=== PATIENT | male | born 1955 | race Caucasian/White ===

== ENCOUNTER 2017-08-12 11:05 | Inpatient (IN) | payer OTHER ==
[2017-08-12 11:26] VITALS: BMI 18.9
[2017-08-12] MEDS ORDERED: MAGNESIUM CITRATE 300 ML BOTTLE PO PRN (12:52)
[2017-08-12] MEDS ORDERED: MENTHOL/PHENOL 1 EACH UD MM PRN (12:52)
[2017-08-12] MEDS ORDERED: MAG HYDROX/AL HYDROX/SIMETH 30 ML UNIT-DOSE CUP PO PRN (12:52)
[2017-08-12] MEDS ORDERED: MAGNESIUM HYDROX 2400MG/30ML ORAL SUSPENSION 30 ML CUP PO PRN (12:52)
[2017-08-12] MEDS ORDERED: chlordiazePOXIDE HCL 25 MG CAPSULE PO PRN (12:52)
[2017-08-12] MEDS ORDERED: P-EPHED 60MG/TRIPROLIDI 2.5MG TABLET PO PRN (12:52)
[2017-08-12] MEDS ORDERED: guaiFENesin/D-METHORPHAN HB 10 ML UNIT-DOSE CUPS PO PRN (12:52)
[2017-08-12] MEDS ORDERED: LOPERAMIDE HCL 2 MG CAPSULE PO PRN (12:52)
[2017-08-12] MEDS ORDERED: IBUPROFEN 400 MG TABLET (FP) PO PRN (12:52)
[2017-08-12] MEDS ORDERED: NICOTINE POLACRILEX 4 MG GUM BUC PRN (12:52)
[2017-08-12] MEDS ORDERED: ACETAMINOPHEN 325 MG TABLET (FP) PO PRN (12:52)
[2017-08-12] MEDS ORDERED: hydrOXYzine PAMOATE 50 MG CAPSULE (FP) PO PRN (12:52)
--- NOTE | 2017-08-12 12:57 | HP ---
CIWA Score - CIWA Score Nausea/Vomitin Muscle Tremors: 4-Moderate,w/Arms Extend Anxiety: 4-Mod. Anxious/Guarded Agitation: 4-Moderately Restless Paroxysmal Sweats: 3 Orientation: 0-Oriented Tacttile Disturbances: 1-Very Mild Itch/Numbness Auditory Disturbances: 0-None Visual Disturbances: 0-None Headache: 1-Very Mild CIWA-Ar Total Score: 20 Admission ROS BHS - HPI Chief Complaint: alcohol withdrawal sx Allergies/Adverse Reactions: Allergies Allergy/AdvReac Type Severity Reaction Status Date / Time No Known Allergies Allergy Verified 12/21/16 11:50 History of Present Illness: 61 yo m w h/o chronic alcoholism, multiple admissions to [facility] for inpatient detox, no h/o seizures or DTs, last drink this AM, uses cannabis regularly, smokes 1PPD PMHx bph on flomax which he took today, depression,a nxiety and insomnia. no h/o suicidal ideation, no suicide attempts in past. Was receiving librium from PCP for withdrawal sx. - Ebola screening Have you had contact with anyone from an Ebola affected area: No Have you been sick,other than usual withdrawal symptoms: No Do you have a fever: No - Review of Systems Constitutional: Chills, Diaphoresis, Night Sweats, Weakness, Unintentional Wgt. Loss EENT: reports: No Symptoms Reported Respiratory: reports: No Symptoms reported Cardiac: reports: No Symptoms Reported GI: reports: Diarrhea, Nausea, Poor Appetite, Poor Fluid Intake, Abdominal cramping : reports: No Symptoms Reported Musculoskeletal: reports: Joint Pain (shoulder pains arthritis), Muscle Pain, Muscle Weakness Integumentary: reports: Flushing, Sweating Neuro: reports: Headache, Numbness, Paresthesia, Tingling, Tremors, Weakness Endocrine: reports: No Symptoms Reported Hematology: reports: No Symptoms Reported Psychiatric: reports: Judgement Intact, Mood/Affect Appropiate, Orientated x3, Anxious, Depressed Other Systems: Reviewed and Negative Patient History - Patient Medical History Hx Anemia: No Hx Asthma: No Hx Chronic Obstructive Pulmonary Disease (COPD): No Hx Cancer: No Hx Cardiac Disorders: No Hx Congestive Heart Failure: No Hx Hypertension: No Hx Hypercholesterolemia: Yes (zocor 40mg recently d/c by PCP) Hx Pacemaker: No HX Cerebrovascular Accident: No Hx Seizures: No Hx Dementia: No Hx Diabetes: No Hx Gastrointestinal Disorders: No Hx Liver Disease: No Hx Genitourinary Disorders: No Hx Sexually Transmitted Disorders: No Hx Renal Disease (ESRD): No Hx Thyroid Disease: No Hx Human Immunodeficiency Virus (HIV): No Hx Hepatitis C: No Hx Depression: Yes (no treatment) Hx Suicide Attempt: No Hx Bipolar Disorder: No Hx Schizophrenia: No - Patient Surgical History Past Surgical History: No Hx Neurologic Surgery: No Hx Cataract Extraction: No Hx Cardiac Surgery: No Hx Lung Surgery: No Hx Breast Surgery: No Hx Breast Biopsy: No Hx Abdominal Surgery: No Hx Appendectomy: No Hx Cholecystectomy: No Hx Genitourinary Surgery: No Hx Section: No Hx Orthopedic Surgery: No Hx Hysterectomy: No Anesthesia Reaction: No - PPD History Previous Implant?: Yes Documented Results: Positive w/proof Implanted On Prior R Admission?: Yes Date: 10/06/12 Results: 15 mm PPD to be Administered?: No - Reproductive History Patient is a Female of Child Bearing Age (11 -55 yrs old): No Patient : No - Smoking Cessation Smoking history: Current every day smoker Have you smoked in the past 12 months: Yes Aproximately how many cigarettes per day: 20 Cigars Per Day: 0 Hx Chewing Tobacco Use: No Initiated information on smoking cessation: Yes 'Breaking Loose' booklet given: 08/12/17 - Substance & Tx. History Hx Alcohol Use: Yes Hx Substance Use: Yes Substance Use Type: Alcohol, Marijuana Hx Substance Use Treatment: Yes (multiple admsisions to [facility];) - Substances Abused Alcohol Route: Oral Frequency: Daily Amount used: vodka(1 pint)/[id number] 6 OZ CANS) Age of first use: 21 Date of Last Use: 08/12/17 Marijuana/Hashish Route: Inhalation Frequency: Daily Amount used: $14 Age of first use: 18 Date of Last Use: 08/12/17 Family Disease History - Family Disease History Family Disease History: Other: Father (alcoholism), Mother (alcoholism), Brother (addiction, alcoholism) Admission Physical Exam BHS - Vital Signs Vital Signs: Vital Signs - 24 hr 08/12/17 11:23 Temperature 98.4 F Pulse Rate 95 H Respiratory 18 Rate Blood Pressure 132/72 - Physical General Appearance: Yes: Nourished, Appropriately Dressed, Disheveled, Mild Distress, Alcohol on Breath, Thin, Tremorous, Irritable, Sweating, Anxious HEENTM: Yes: Within Normal Limits, EOMI, Hearing grossly Normal, Normal ENT Inspection, Normocephalic, Normal Voice, DADA Respiratory: Yes: Within Normal Limits, Chest Non-Tender, Lungs Clear, Normal Breath Sounds, No Respiratory Distress, No Accessory Muscle Use Neck: Yes: Within Normal Limits, No masses,lesions,Nodules, Supple, Trachea in good position Breast: Yes: Breast Exam Deferred Cardiology: Yes: Within Normal Limits, Regular Rhythm, Regular Rate, S1, S2 Abdominal: Yes: Normal Bowel Sounds, Non Tender, Flat, Soft Genitourinary: Yes: Within Normal Limits Back: Yes: Within Normal Limits, Normal Inspection Musculoskeletal: Yes: Within Normal Limits, full range of Motion, Joint Stiffness (right shoulder arthritis), Muscle Pain Extremities: Yes: Normal Capillary Refill, Normal Range of Motion, Non-Tender, Tremors Neurological: Yes: floor representative II-XII NML intact, Fully Oriented, Alert, Motor Strength 5/5, Normal Response, Depressed Affect Integumentary: Yes: Normal Color, Warm, Diaphoresis, Moist Lymphatic: Yes: Within Normal Limits - Addiitonal Findings: withdrawal sx - Diagnostic (1) Alcohol dependence with uncomplicated withdrawal Current Visit: No Status: Chronic (2) Anxiety Current Visit: Yes Status: Acute (3) Cannabis abuse Current Visit: Yes Status: Acute (4) Drug-induced mood disorder Current Visit: Yes Status: Acute (5) Nicotine dependence Current Visit: Yes Status: Acute Qualifiers: Nicotine product type: cigarettes Substance use status: uncomplicated Qualified Code(s): F17.210 - Nicotine dependence, cigarettes, uncomplicated ; F17.210 - Nicotine dependence, cigarettes, uncomplicated (6) Insomnia Current Visit: Yes Status: Acute Cleared for Admission [facility] - Detox or Rehab [facility] Level of Care: Medically Managed Detox Regimen/Protocol: Librium [facility] Breath Alcohol Content Breath Alcohol Content: 0.244 Urine Drug Screen - Results Drug Screen Negative: No Urine Drug Screen Results: THC-Marijuana, BZO-Benzodiazepines
[2017-08-12] MEDS: chlordiazePOXIDE HCL 25 MG CAPSULE PO SCH ×2 (17:26→22:33)
[2017-08-12 18:39] LABS: URINE APPEARANCE CLEAR; URINE BILIRUBIN NEGATIVE (NEGATIVE); URINE BLOOD 1+ (NEGATIVE); URINE COLOR LTYELLOW; URINE GLUCOSE (UA) NEGATIVE (NEGATIVE); URINE KETONE NEGATIVE (NEGATIVE); URINE NITRITE NEGATIVE (NEGATIVE); URINE PROTEIN NEGATIVE (NEGATIVE); URINE UROBILINOGEN NEGATIVE mg/dL (0.2-1.0)
[2017-08-12 18:59] LABS: URINE MUCUS RARE; URINE RBC <1 /hpf (0-3); URINE WBC <1 /hpf (3-5)
[2017-08-12 21:07] LABS: URINE LEUK ESTERASE Negative (NEGATIVE)
[2017-08-12] MEDS: THIAMINE HCL 100 MG TABLET (FP) PO SCH (22:33)
[2017-08-12] MEDS: ZOLPIDEM TARTRATE 5 MG TABLET PO PRN (22:34)
[2017-08-13] MEDS: chlordiazePOXIDE HCL 25 MG CAPSULE PO SCH ×4 (05:48→22:21)
[2017-08-13] MEDS: TAMSULOSIN HCL 0.4 MG CAP.ER.24H (FP) PO SCH (10:16)
[2017-08-13] MEDS: PRENATAL VITAMINS W/ FOLIC ACID TABLET (FP) PO SCH (10:16)
[2017-08-13] MEDS: NICOTINE 21 MG/24 HOURS TOPICAL PATCH TD SCH (10:17)
[2017-08-13 11:36] LABS: MCH 32.4 pg (25.7-33.7); MCHC 32.8 g/dl (32.0-35.9); MEAN CELL VOLUME 98.9 fl (80-96); MEAN PLT VOLUME 9.4 fl (7.5-11.1); PLATELET COUNT 297 K/MM3 (134-434); RDW 14.7 % (11.9-15.9); WHITE BLOOD COUNT 7.8 K/mm3 (4.0-10.0)
--- NOTE | 2017-08-13 11:40 | EKG ---
Test Reason : Blood Pressure : / mmHG Vent. Rate : 095 BPM Atrial Rate : 095 BPM P-R Int : 136 ms QRS Dur : 102 ms QT Int : 348 ms P-R-T Axes : 079 076 074 degrees QTc Int : 437 ms NORMAL SINUS RHYTHM POSSIBLE LEFT ATRIAL ENLARGEMENT NO PREVIOUS ECGS AVAILABLE Confirmed by TAWANNA FRANKLIN MD ([id number]) on 08/13/2017 11:40:07 AM Referred By: Confirmed By:TAWANNA FRANKLIN MD
[2017-08-13 11:53] LABS: ALBUMIN 3.2 g/dl (3.4-5.0); ANION GAP 9 (8-16); CALCIUM 8.3 mg/dL (8.5-10.1); CO2 30 mmol/L (21-32); GLUCOSE,RANDOM 72 mg/dL (74-106)
[2017-08-13 11:58] LABS: ALK PHOS 77 U/L (45-117); BILIRUBIN,TOTAL 0.5 mg/dL (0.2-1.0); CREATININE 0.7 mg/dL (0.7-1.3); SGOT/AST 24 U/L (15-37); SGPT/ALT 25 U/L (12-78); TOT PROT 6.2 g/dl (6.4-8.2)
[2017-08-13] MEDS ORDERED: FLU VACCINE QUAD 60 MCG/0.5 ML (MDV 17-18) IM ONE (12:00)
--- NOTE | 2017-08-13 13:50 | PN ---
[facility] CIWA - CIWA Score Nausea/Vomitin-No Nausea/No Vomiting Muscle Tremors: 4-Moderate,w/Arms Extend Anxiety: 4-Mod. Anxious/Guarded Agitation: 4-Moderately Restless Paroxysmal Sweats: 1-Minimal Palms Moist Orientation: 0-Oriented Tacttile Disturbances: 3-Moderate Itch/Numb/Burn Auditory Disturbances: 0-None Visual Disturbances: 0-None Headache: 0-None Present CIWA-Ar Total Score: 16 BHS Progress Note (SOAP) Subjective: SLIGHT ANXIETY,SWEATS,TREMORS. Objective: 08/13/17 13:50 Vital Signs Temperature 98.3 F 08/13/17 13:40 Pulse Rate 88 08/13/17 13:40 Respiratory Rate 18 08/13/17 13:40 Blood Pressure 113/73 08/13/17 13:40 O2 Sat by Pulse Oximetry (%) Laboratory Last Values WBC 7.8 K/mm3 (4.0-10.0) 08/13/17 07:45 RBC 4.28 M/mm3 (4.00-5.60) 08/13/17 07:45 Hgb 13.9 GM/dL (11.7-16.9) 08/13/17 07:45 Hct 42.3 % (35.4-49) 08/13/17 07:45 MCV 98.9 fl (80-96) H 08/13/17 07:45 MCH 32.4 pg (25.7-33.7) 08/13/17 07:45 MCHC 32.8 g/dl (32.0-35.9) 08/13/17 07:45 RDW 14.7 % (11.9-15.9) D 08/13/17 07:45 Plt Count 297 K/MM3 (134-434) D 08/13/17 07:45 MPV 9.4 fl (7.5-11.1) 08/13/17 07:45 Sodium 141 mmol/L (136-145) 08/13/17 07:45 Potassium 4.3 mmol/L (3.5-5.1) 08/13/17 07:45 Chloride 102 mmol/L (98-107) 08/13/17 07:45 Carbon Dioxide 30 mmol/L (21-32) 08/13/17 07:45 Anion Gap 9 (8-16) 08/13/17 07:45 BUN 19 mg/dL (7-18) H D 08/13/17 07:45 Creatinine 0.7 mg/dL (0.7-1.3) 08/13/17 07:45 Creat Clearance w eGFR > 60 (>60) 08/13/17 07:45 Random Glucose 72 mg/dL (74-106) L 08/13/17 07:45 Calcium 8.3 mg/dL (8.5-10.1) L 08/13/17 07:45 Total Bilirubin 0.5 mg/dL (0.2-1.0) 08/13/17 07:45 AST 24 U/L (15-37) D 08/13/17 07:45 ALT 25 U/L (12-78) D 08/13/17 07:45 Alkaline Phosphatase 77 U/L (45-117) 08/13/17 07:45 Total Protein 6.2 g/dl (6.4-8.2) L D 08/13/17 07:45 Albumin 3.2 g/dl (3.4-5.0) L D 08/13/17 07:45 Urine Color Ltyellow 08/12/17 09:49 Urine Appearance Clear 08/12/17 09:49 Urine pH 5.0 (5.0-8.0) 08/12/17 09:49 Ur Specific [place] <= 1.005 (1.005-1.025) 08/12/17 09:49 Urine Protein Negative (NEGATIVE) 08/12/17 09:49 Urine Glucose (UA) Negative (NEGATIVE) 08/12/17 09:49 Urine Ketones Negative (NEGATIVE) 08/12/17 09:49 Urine Blood 1+ (NEGATIVE) H 08/12/17 09:49 Urine Nitrite Negative (NEGATIVE) 08/12/17 09:49 Urine Bilirubin Negative (NEGATIVE) 08/12/17 09:49 Urine Urobilinogen Negative mg/dL (0.2-1.0) 08/12/17 09:49 Ur Leukocyte Esterase Negative (NEGATIVE) 08/12/17 09:49 Urine RBC <1 /hpf (0-3) 08/12/17 09:49 Urine WBC <1 /hpf (3-5) 08/12/17 09:49 Urine Mucus Rare 08/12/17 09:49 RPR Titer Nonreactive (NONREACTIVE) 08/13/17 07:45 Assessment: 08/13/17 13:50 WITHDRAWAL SX Plan: CONTINUE DETOX
[2017-08-13] MEDS: ZOLPIDEM TARTRATE 5 MG TABLET PO PRN (22:21)
[2017-08-13] MEDS: THIAMINE HCL 100 MG TABLET (FP) PO SCH (22:21)
[2017-08-14] MEDS: chlordiazePOXIDE HCL 25 MG CAPSULE PO SCH ×2 (05:21→10:29)
[2017-08-14] MEDS: TAMSULOSIN HCL 0.4 MG CAP.ER.24H (FP) PO SCH (10:29)
[2017-08-14] MEDS: NICOTINE 21 MG/24 HOURS TOPICAL PATCH TD SCH (10:29)
[2017-08-14] MEDS: PRENATAL VITAMINS W/ FOLIC ACID TABLET (FP) PO SCH (10:30)
--- NOTE | 2017-08-14 11:24 | PN ---
[facility] CIWA - CIWA Score Nausea/Vomitin-No Nausea/No Vomiting Muscle Tremors: 4-Moderate,w/Arms Extend Anxiety: 4-Mod. Anxious/Guarded Agitation: 4-Moderately Restless Paroxysmal Sweats: 1-Minimal Palms Moist Orientation: 0-Oriented Tacttile Disturbances: 3-Moderate Itch/Numb/Burn Auditory Disturbances: 0-None Visual Disturbances: 0-None Headache: 0-None Present CIWA-Ar Total Score: 16 BHS Progress Note (SOAP) Subjective: SLIGHT ANXIETY,SWEATS. ALERT O X 3. NAD. Objective: 08/14/17 11:24 Vital Signs Temperature 96.2 F L 08/14/17 09:55 Pulse Rate 79 08/14/17 09:55 Respiratory Rate 20 08/14/17 09:55 Blood Pressure 111/78 08/14/17 09:55 O2 Sat by Pulse Oximetry (%) Laboratory Last Values WBC 7.8 K/mm3 (4.0-10.0) 08/13/17 07:45 RBC 4.28 M/mm3 (4.00-5.60) 08/13/17 07:45 Hgb 13.9 GM/dL (11.7-16.9) 08/13/17 07:45 Hct 42.3 % (35.4-49) 08/13/17 07:45 MCV 98.9 fl (80-96) H 08/13/17 07:45 MCH 32.4 pg (25.7-33.7) 08/13/17 07:45 MCHC 32.8 g/dl (32.0-35.9) 08/13/17 07:45 RDW 14.7 % (11.9-15.9) D 08/13/17 07:45 Plt Count 297 K/MM3 (134-434) D 08/13/17 07:45 MPV 9.4 fl (7.5-11.1) 08/13/17 07:45 Sodium 141 mmol/L (136-145) 08/13/17 07:45 Potassium 4.3 mmol/L (3.5-5.1) 08/13/17 07:45 Chloride 102 mmol/L (98-107) 08/13/17 07:45 Carbon Dioxide 30 mmol/L (21-32) 08/13/17 07:45 Anion Gap 9 (8-16) 08/13/17 07:45 BUN 19 mg/dL (7-18) H D 08/13/17 07:45 Creatinine 0.7 mg/dL (0.7-1.3) 08/13/17 07:45 Creat Clearance w eGFR > 60 (>60) 08/13/17 07:45 Random Glucose 72 mg/dL (74-106) L 08/13/17 07:45 Calcium 8.3 mg/dL (8.5-10.1) L 08/13/17 07:45 Total Bilirubin 0.5 mg/dL (0.2-1.0) 08/13/17 07:45 AST 24 U/L (15-37) D 08/13/17 07:45 ALT 25 U/L (12-78) D 08/13/17 07:45 Alkaline Phosphatase 77 U/L (45-117) 08/13/17 07:45 Total Protein 6.2 g/dl (6.4-8.2) L D 08/13/17 07:45 Albumin 3.2 g/dl (3.4-5.0) L D 08/13/17 07:45 Urine Color Ltyellow 08/12/17 09:49 Urine Appearance Clear 08/12/17 09:49 Urine pH 5.0 (5.0-8.0) 08/12/17 09:49 Ur Specific [place] <= 1.005 (1.005-1.025) 08/12/17 09:49 Urine Protein Negative (NEGATIVE) 08/12/17 09:49 Urine Glucose (UA) Negative (NEGATIVE) 08/12/17 09:49 Urine Ketones Negative (NEGATIVE) 08/12/17 09:49 Urine Blood 1+ (NEGATIVE) H 08/12/17 09:49 Urine Nitrite Negative (NEGATIVE) 08/12/17 09:49 Urine Bilirubin Negative (NEGATIVE) 08/12/17 09:49 Urine Urobilinogen Negative mg/dL (0.2-1.0) 08/12/17 09:49 Ur Leukocyte Esterase Negative (NEGATIVE) 08/12/17 09:49 Urine RBC <1 /hpf (0-3) 08/12/17 09:49 Urine WBC <1 /hpf (3-5) 08/12/17 09:49 Urine Mucus Rare 08/12/17 09:49 RPR Titer Nonreactive (NONREACTIVE) 08/13/17 07:45 Assessment: 08/14/17 11:24 WITHDRAWAL SX Plan: CONTINUE DETOX
[2017-08-14] MEDS: chlordiazePOXIDE 5 MG CAPSULE PO SCH ×2 (17:46→22:20)
[2017-08-14] MEDS: THIAMINE HCL 100 MG TABLET (FP) PO SCH (22:20)
[2017-08-14] MEDS: ZOLPIDEM TARTRATE 5 MG TABLET PO PRN (22:21)
[2017-08-15] MEDS: chlordiazePOXIDE 5 MG CAPSULE PO SCH ×2 (05:33→10:42)
[2017-08-15] MEDS: TAMSULOSIN HCL 0.4 MG CAP.ER.24H (FP) PO SCH (10:42)
[2017-08-15] MEDS: PRENATAL VITAMINS W/ FOLIC ACID TABLET (FP) PO SCH (10:42)
[2017-08-15] MEDS: NICOTINE 21 MG/24 HOURS TOPICAL PATCH TD SCH (10:44)
--- NOTE | 2017-08-15 12:48 | PN ---
BHS Progress Note (SOAP) Subjective: Tremors. Objective: PT. A & O X 3, OBSERVED AMBULATING ON UNIT. NO ACUTE DISTRESS. 08/15/17 12:45 Vital Signs Temperature 96.2 F L 08/15/17 09:13 Pulse Rate 76 08/15/17 09:13 Respiratory Rate 18 08/15/17 09:13 Blood Pressure 114/65 08/15/17 09:13 O2 Sat by Pulse Oximetry (%) Laboratory Tests 08/12/17 08/13/17 08/13/17 09:49 07:45 07:45 WBC 7.8 RBC 4.28 Hgb 13.9 Hct 42.3 MCV 98.9 H MCH 32.4 MCHC 32.8 RDW 14.7 D Plt Count 297 D MPV 9.4 Sodium 141 Potassium 4.3 Chloride 102 Carbon Dioxide 30 Anion Gap 9 BUN 19 H D Creatinine 0.7 Creat Clearance w eGFR > 60 Random Glucose 72 L Calcium 8.3 L Total Bilirubin 0.5 AST 24 D ALT 25 D Alkaline Phosphatase 77 Total Protein 6.2 L D Albumin 3.2 L D Urine Color Ltyellow Urine Appearance Clear Urine pH 5.0 Ur Specific [place] <= 1.005 Urine Protein Negative Urine Glucose (UA) Negative Urine Ketones Negative Urine Blood 1+ H Urine Nitrite Negative Urine Bilirubin Negative Urine Urobilinogen Negative Ur Leukocyte Esterase Negative Urine RBC <1 Urine WBC <1 Urine Mucus Rare RPR Titer 08/13/17 07:45 WBC RBC Hgb Hct MCV MCH MCHC RDW Plt Count MPV Sodium Potassium Chloride Carbon Dioxide Anion Gap BUN Creatinine Creat Clearance w eGFR Random Glucose Calcium Total Bilirubin AST ALT Alkaline Phosphatase Total Protein Albumin Urine Color Urine Appearance Urine pH Ur Specific [place] Urine Protein Urine Glucose (UA) Urine Ketones Urine Blood Urine Nitrite Urine Bilirubin Urine Urobilinogen Ur Leukocyte Esterase Urine RBC Urine WBC Urine Mucus RPR Titer Nonreactive LABS NOTED. Assessment: 08/15/17 12:47 WITHDRAWAL SYMPTOMS. Plan: CONTINUE DETOX.
[2017-08-15] MEDS: chlordiazePOXIDE HCL 10 MG CAPSULE PO SCH ×2 (17:31→22:24)
[2017-08-15] MEDS: ZOLPIDEM TARTRATE 5 MG TABLET PO PRN (22:24)
[2017-08-15] MEDS: THIAMINE HCL 100 MG TABLET (FP) PO SCH (22:24)
[2017-08-16] MEDS: chlordiazePOXIDE HCL 10 MG CAPSULE PO SCH (05:17)
[2017-08-16 06:18] VITALS: BP 110/63; PULSE 65; TEMP 97.5
--- NOTE | 2017-08-16 17:00 | DS ---
[facility] Detox Discharge Summary Admission Date: 08/12/17 Discharge Date: 08/16/17 - History Present History: Alcohol Dependence, Cannabis Dependence Additional Comments: PATIENT GOING HOME. PATIENT ADVISED TO CONSIDER LOCAL 12-STEP / AA OUTPATIENT SUPPORT GROUP MEETINGS FOR AFTERCARE. PATIENT WAS DISCHARGED FROM DETOX UNIT IN STABLE MEDICAL CONDITION. Pertinent Past History: Hypercholesterolemia, Nicotine Dependence, Insomnia, Anxiety. - Physical Exam Results Vital Signs: Vital Signs Temperature 97.5 F L 08/16/17 06:18 Pulse Rate 65 08/16/17 06:18 Respiratory Rate 16 08/16/17 06:18 Blood Pressure 110/63 08/16/17 06:18 O2 Sat by Pulse Oximetry (%) Pertinent Admission Physical Exam Findings: WITHDRAWAL SYMPTOMS. Laboratory Tests 08/12/17 08/13/17 08/13/17 09:49 07:45 07:45 WBC 7.8 RBC 4.28 Hgb 13.9 Hct 42.3 MCV 98.9 H MCH 32.4 MCHC 32.8 RDW 14.7 D Plt Count 297 D MPV 9.4 Sodium 141 Potassium 4.3 Chloride 102 Carbon Dioxide 30 Anion Gap 9 BUN 19 H D Creatinine 0.7 Creat Clearance w eGFR > 60 Random Glucose 72 L Calcium 8.3 L Total Bilirubin 0.5 AST 24 D ALT 25 D Alkaline Phosphatase 77 Total Protein 6.2 L D Albumin 3.2 L D Urine Color Ltyellow Urine Appearance Clear Urine pH 5.0 Ur Specific [place] <= 1.005 Urine Protein Negative Urine Glucose (UA) Negative Urine Ketones Negative Urine Blood 1+ H Urine Nitrite Negative Urine Bilirubin Negative Urine Urobilinogen Negative Ur Leukocyte Esterase Negative Urine RBC <1 Urine WBC <1 Urine Mucus Rare RPR Titer 08/13/17 07:45 WBC RBC Hgb Hct MCV MCH MCHC RDW Plt Count MPV Sodium Potassium Chloride Carbon Dioxide Anion Gap BUN Creatinine Creat Clearance w eGFR Random Glucose Calcium Total Bilirubin AST ALT Alkaline Phosphatase Total Protein Albumin Urine Color Urine Appearance Urine pH Ur Specific [place] Urine Protein Urine Glucose (UA) Urine Ketones Urine Blood Urine Nitrite Urine Bilirubin Urine Urobilinogen Ur Leukocyte Esterase Urine RBC Urine WBC Urine Mucus RPR Titer Nonreactive LABS NOTED. - Treatment Hospital Course: Detox Protocol Followed, Detoxed Safely, Responded well, Discharged Condition Good Patient has Accepted a Rehab Referral to: NO. PT. GOING HOME, ADVISED TO CONSIDER LOCAL 12-STEP/AA SUPPORT GROUPS - Medication Discharge Medications: Ambulatory Orders Tamsulosin HCl [Flomax] 0.4 mg PO DAILY 08/12/17 - Diagnosis (1) Alcohol dependence with uncomplicated withdrawal Status: Acute (2) Anxiety Status: Acute (3) Cannabis abuse Status: Acute (4) Drug-induced mood disorder Status: Acute (5) Insomnia Status: Acute Qualifiers: Insomnia type: unspecified Qualified Code(s): G47.00 - Insomnia, unspecified; G47.00 - Insomnia, unspecified (6) Nicotine dependence Status: Acute Qualifiers: Nicotine product type: cigarettes Substance use status: in withdrawal Qualified Code(s): F17.213 - Nicotine dependence, cigarettes, with withdrawal; F17.213 - Nicotine dependence, cigarettes, with withdrawal - AMA Did Patient Leave Against Medical Advice: No
== END 2017-08-16 06:35 | disposition home or self-care (01) | DRG 775 ==
LOC: YASAS 11:05 → Y3N 13:32
PROVIDERS: ADMIT Internal Medicine; ATTEND Internal Medicine
PROC: HZ2ZZZZ Detoxification Services for Substance Abuse Treatment (ICD-10-PCS; principal; 2017-08-12)
DX: F10.230 Alcohol dependence with withdrawal, uncomplicated (principal); F12.10 Cannabis abuse, uncomplicated; F17.213 Nicotine dependence, cigarettes, with withdrawal; F32.9 Major depressive disorder, single episode, unspecified; F10.24 Alcohol dependence with alcohol-induced mood disorder; F41.9 Anxiety disorder, unspecified; G47.00 Insomnia, unspecified
CPT/HCPCS: 36415; 71020-TC; 80053; 81003; 81015; 85027; 86593; 90688; 93005; 93010; G0008

== ENCOUNTER 2017-11-29 13:15 | Inpatient (IN) | payer OTHER ==
[2017-11-29 14:22] VITALS: BMI 18.4
--- NOTE | 2017-11-29 16:57 | HP ---
CIWA Score - CIWA Score Nausea/Vomitin-No Nausea/No Vomiting Muscle Tremors: 4-Moderate,w/Arms Extend Anxiety: 4-Mod. Anxious/Guarded Agitation: 1-Slight > Activity Paroxysmal Sweats: No Perspiration Orientation: 1-Uncertain about Date Tacttile Disturbances: 2-Mild Itch/Numbness/Burn (hands and feet) Auditory Disturbances: 0-None Visual Disturbances: 0-None Headache: 0-None Present CIWA-Ar Total Score: 12 Admission ROS S - HPI Chief Complaint: ETOH withdrawal symptoms Allergies/Adverse Reactions: Allergies Allergy/AdvReac Type Severity Reaction Status Date / Time No Known Allergies Allergy Verified 12/21/16 11:50 History of Present Illness: 61 yo male with hx of alcohol dependence, has multiple admissions to [facility] for inpatient detox, last detox 2016. Reports 40+ year cigaret smoking, with currently smokes 1/2 pack per day. Report recent of his mother this . Denies any history of seizure. Last drink was this AM. Longest period of sobriety 3 years. PMX BPH on flomax which he took this AM. Denies any other medical problems, suicidal/ homicidal ideation or suicide attempts. - Ebola screening Have you traveled outside of the country in the last 21 days: No Have you had contact with anyone from an Ebola affected area: No Have you been sick,other than usual withdrawal symptoms: No Do you have a fever: No - Review of Systems Constitutional: Changes in sleep EENT: reports: No Symptoms Reported Respiratory: reports: No Symptoms reported Cardiac: reports: No Symptoms Reported GI: reports: No Symptoms Reported : reports: No Symptoms Reported (reports no urinary symptoms) Musculoskeletal: reports: No Symptoms Reported Integumentary: reports: No Symptoms Reported Neuro: reports: Numbness (hands and feet), Tingling, Tremors Endocrine: reports: No Symptoms Reported Hematology: reports: No Symptoms Reported Psychiatric: reports: Anxious, Depressed, other (AO x PP) Other Systems: Reviewed and Negative Patient History - Patient Medical History Hx Anemia: No Hx Asthma: No Hx Chronic Obstructive Pulmonary Disease (COPD): No Hx Cancer: No Hx Cardiac Disorders: No Hx Congestive Heart Failure: No Hx Hypertension: Yes (Amlodipine 5mg QD) Hx Hypercholesterolemia: Yes (Sivastatin 20mg QD ) Hx Pacemaker: No HX Cerebrovascular Accident: No Hx Seizures: No Hx Dementia: No Hx Diabetes: No Hx Gastrointestinal Disorders: No Hx Liver Disease: No Hx Genitourinary Disorders: Yes (BPH on Flomax ) Hx Sexually Transmitted Disorders: No Hx Renal Disease (ESRD): No Hx Thyroid Disease: No Hx Human Immunodeficiency Virus (HIV): No Hx Hepatitis C: No Hx Depression: Yes (no treatment) Hx Suicide Attempt: No Hx Bipolar Disorder: No Hx Schizophrenia: No - Patient Surgical History Past Surgical History: No Hx Neurologic Surgery: No Hx Cataract Extraction: No Hx Cardiac Surgery: No Hx Lung Surgery: No Hx Breast Surgery: No Hx Breast Biopsy: No Hx Abdominal Surgery: No Hx Appendectomy: No Hx Cholecystectomy: No Hx Genitourinary Surgery: No Hx Section: No Hx Orthopedic Surgery: No Hx Hysterectomy: No Anesthesia Reaction: No - PPD History Previous Implant?: No Documented Results: Negative w/proof (last Chest x - ray Jul 2017) Date: 10/06/12 Results: 15 mm PPD to be Administered?: No - Reproductive History Patient is a Female of Child Bearing Age (11 -55 yrs old): No - Smoking Cessation Smoking history: Current every day smoker Have you smoked in the past 12 months: Yes Aproximately how many cigarettes per day: 20 Cigars Per Day: 0 Hx Chewing Tobacco Use: No Initiated information on smoking cessation: Yes 'Breaking Loose' booklet given: 11/29/17 - Substance & Tx. History Hx Alcohol Use: Yes Hx Substance Use: No - Substances Abused Alcohol Route: Oral Frequency: Daily Amount used: 2 PINT VODKA , 6PACK BEER Age of first use: 28 Date of Last Use: 11/29/17 Family Disease History - Family Disease History Family Disease History: Other: Father (alcoholism), Mother (alcoholism), Brother (addiction, alcoholism) Admission Physical Exam BHS - Vital Signs Vital Signs: Vital Signs - 24 hr 11/29/17 14:15 Temperature 97 F L Pulse Rate 101 H Respiratory 20 Rate Blood Pressure 120/66 - Physical General Appearance: Yes: Appropriately Dressed, Alcohol on Breath, Thin, Tremorous, Anxious HEENTM: Yes: Hearing grossly Normal, Normal ENT Inspection, Normocephalic, Normal Voice, Pharynx Normal, Tm's normal Respiratory: Yes: Chest Non-Tender, Lungs Clear, Normal Breath Sounds, No Respiratory Distress, No Accessory Muscle Use Neck: Yes: No masses,lesions,Nodules, Trachea in good position Breast: Yes: Breast Exam Deferred, Within Normal Limits, Axillae without masses Cardiology: Yes: Regular Rhythm, Regular Rate, S1, S2 Abdominal: Yes: Normal Bowel Sounds, Non Tender, Flat, Soft Genitourinary: Yes: Within Normal Limits (reports no urinary symptoms) Back: Yes: Normal Inspection Musculoskeletal: Yes: full range of Motion, Gait Steady, Pelvis Stable Extremities: Yes: Normal Capillary Refill, Normal Inspection, Normal Range of Motion, Non-Tender Neurological: Yes: mate first II-XII NML intact, Fully Oriented, Alert, Motor Strength 5/5, Normal Response, Depressed Affect Integumentary: Yes: Normal Color, Dry, Warm, Other (poor skin turgor) Lymphatic: Yes: Within Normal Limits - Diagnostic (1) Anxious mood Current Visit: Yes Status: Acute (2) Depressed affect Current Visit: Yes Status: Acute (3) Dehydration Current Visit: Yes Status: Acute (4) Alcohol dependence with uncomplicated withdrawal Current Visit: No Status: Acute (5) Nicotine dependence Current Visit: Yes Status: Chronic Qualifiers: Nicotine product type: cigarettes Substance use status: in withdrawal Qualified Code(s): F17.213 - Nicotine dependence, cigarettes, with withdrawal Cleared for Admission [facility] - Detox or Rehab [facility] Level of Care: Medically Managed Detox Regimen/Protocol: Librium [facility] Breath Alcohol Content Breath Alcohol Content: 0.318 Urine Drug Screen - Results Drug Screen Negative: Yes
[2017-11-29] MEDS ORDERED: IBUPROFEN 400 MG TABLET (FP) PO PRN (17:15)
[2017-11-29] MEDS ORDERED: P-EPHED 60MG/TRIPROLIDI 2.5MG TABLET PO PRN (17:15)
[2017-11-29] MEDS ORDERED: guaiFENesin/D-METHORPHAN HB 10 ML UNIT-DOSE CUPS PO PRN (17:15)
[2017-11-29] MEDS ORDERED: MAGNESIUM CITRATE 300 ML BOTTLE PO PRN (17:15)
[2017-11-29] MEDS ORDERED: LOPERAMIDE HCL 2 MG CAPSULE PO PRN (17:15)
[2017-11-29] MEDS ORDERED: chlordiazePOXIDE HCL 25 MG CAPSULE PO PRN (17:15)
[2017-11-29] MEDS ORDERED: hydrOXYzine PAMOATE 50 MG CAPSULE (FP) PO PRN (17:15)
[2017-11-29] MEDS ORDERED: MAGNESIUM HYDROX 2400MG/30ML ORAL SUSPENSION 30 ML CUP PO PRN (17:15)
[2017-11-29] MEDS ORDERED: ACETAMINOPHEN 325 MG TABLET (FP) PO PRN (17:15)
[2017-11-29] MEDS ORDERED: MENTHOL/PHENOL 1 EACH UD MM PRN (17:15)
[2017-11-29] MEDS ORDERED: NICOTINE POLACRILEX 2 MG GUM BUC PRN (17:15)
[2017-11-29] MEDS ORDERED: MAG HYDROX/AL HYDROX/SIMETH 30 ML UNIT-DOSE CUP PO PRN (17:15)
[2017-11-29] MEDS ORDERED: chlordiazePOXIDE HCL 25 MG CAPSULE PO ONE (17:45)
[2017-11-29] MEDS: NICOTINE 21 MG/24 HOURS TOPICAL PATCH TD SCH (18:06)
[2017-11-29] MEDS: chlordiazePOXIDE HCL 25 MG CAPSULE PO SCH ×2 (18:07→22:17)
[2017-11-29] MEDS: THIAMINE HCL 100 MG TABLET (FP) PO SCH (22:17)
[2017-11-29] MEDS: ATORVASTATIN CA 20 MG TABLET (FP) PO SCH (22:17)
[2017-11-29 23:45] LABS: URINE APPEARANCE CLEAR; URINE BILIRUBIN NEGATIVE (NEGATIVE); URINE BLOOD 1+ (NEGATIVE); URINE COLOR COLORLESS; URINE GLUCOSE (UA) NEGATIVE (NEGATIVE); URINE KETONE NEGATIVE (NEGATIVE); URINE LEUK ESTERASE NEGATIVE (NEGATIVE); URINE NITRITE NEGATIVE (NEGATIVE); URINE PROTEIN NEGATIVE (NEGATIVE); URINE UROBILINOGEN NEGATIVE mg/dL (0.2-1.0)
[2017-11-30] MEDS: chlordiazePOXIDE HCL 25 MG CAPSULE PO SCH ×4 (05:37→22:21)
--- NOTE | 2017-11-30 08:52 | CONSULT ---
[facility] Psychiatric Consult - Data Date of interview: 11/30/17 Admission source: [facility] Identifying data: Pt. is a 62 year old [place] male, father of two , and currently unemployed. This is patient's first admission to [facility]. Pt. admitted to for alcohol depenendence. Substance Abuse History: Following information confirmed with Mr. Redd: Smoking Cessation. Smoking history: Current every day smoker. Have you smoked in the past 12 months: Yes. Aproximately how many cigarettes per day: 20. Cigars Per Day: 0. Hx Chewing Tobacco Use: No. Initiated information on smoking cessation: Yes. 'Breaking Loose' booklet given: 11/29/17. - Substance & Tx. History. Hx Alcohol Use: Yes. Hx Substance Use: No. - Substances Abused. Alcohol. Route: Oral. Frequency: Daily. Amount used: 2 PINT VODKA , 6PACK BEER. Age of first use: 28. Date of Last Use: 11/29/17 Medical History: Hypertension, hypercholesterolemia Psychiatric History: Pt. denies h/o psychatric hospitalization, outpatient care , and suicide attemps. Physical/Sexual Abuse/Trauma History: Denies. Mental Status Exam - Mental Status Exam Alert and Oriented to: Time, Place, Person Cognitive Function: Good Patient Appearance: Unkempt Mood: Euthymic Affect: Mood Congruent Patient Behavior: Cooperative Speech Pattern: Clear, Appropriate, Inappropriate Voice Loudness: Normal Thought Process: Goal Oriented Thought Disorder: Not Present Hallucinations: Denies Suicidal Ideation: Denies Homicidal Ideation: Denies Insight/Judgement: Poor Sleep: Fair Appetite: Good Muscle strength/Tone: Normal Psychiatric Findings - Problem List ([place] 1, 2,3) (1) Alcohol dependence with uncomplicated withdrawal Current Visit: Yes Status: Acute (2) Nicotine dependence Current Visit: Yes Status: Chronic Qualifiers: Nicotine product type: cigarettes Substance use status: in withdrawal Qualified Code(s): F17.213 - Nicotine dependence, cigarettes, with withdrawal - Initial Treatment Plan Initial Treatment Plan: Psycheducation provided. Detoxification in progress. Observation.
[2017-11-30] MEDS ORDERED: amLODIPine BESYLATE 5 MG TABLET (FP) PO SCH (10:00)
[2017-11-30 10:15] LABS: HEMATOCRIT 39.8 % (35.4-49); HEMOGLOBIN 13.2 GM/dL (11.7-16.9); MCH 32.5 pg (25.7-33.7); MCHC 33.1 g/dl (32.0-35.9); MEAN PLT VOLUME 9.3 fl (7.5-11.1); PLATELET COUNT 303 K/MM3 (134-434); RBC 4.06 M/mm3 (4.00-5.60); RDW 14.7 % (11.9-15.9); WHITE BLOOD COUNT 7.8 K/mm3 (4.0-10.0)
[2017-11-30 10:39] LABS: CALCIUM 7.9 mg/dL (8.5-10.1); CHLORIDE 106 mmol/L (98-107); POTASSIUM 4.4 mmol/L (3.5-5.1); SODIUM 143 mmol/L (136-145)
[2017-11-30 10:42] LABS: ALBUMIN 3.3 g/dl (3.4-5.0); ALK PHOS 82 U/L (45-117); ANION GAP 5 (8-16); BILIRUBIN,TOTAL 0.5 mg/dL (0.2-1.0); BLOOD UREA NITROGEN 19 mg/dL (7-18); CO2 32 mmol/L (21-32); CREATININE 0.6 mg/dL (0.7-1.3); GLUCOSE,RANDOM 74 mg/dL (74-106); SGOT/AST 26 U/L (15-37); SGPT/ALT 20 U/L (12-78); TOT PROT 5.9 g/dl (6.4-8.2)
[2017-11-30] MEDS: PRENATAL VITAMINS W/ FOLIC ACID TABLET (FP) PO SCH (10:48)
[2017-11-30] MEDS: NICOTINE 21 MG/24 HOURS TOPICAL PATCH TD SCH (10:48)
[2017-11-30] MEDS: ASPIRIN COATED 81 MG TABLET.EC PO SCH (10:48)
[2017-11-30] MEDS: TAMSULOSIN HCL 0.4 MG CAP.ER.24H (FP) PO SCH (10:48)
--- NOTE | 2017-11-30 11:04 | EKG ---
Test Reason : Blood Pressure : / mmHG Vent. Rate : 097 BPM Atrial Rate : 097 BPM P-R Int : 162 ms QRS Dur : 094 ms QT Int : 352 ms P-R-T Axes : 076 076 066 degrees QTc Int : 447 ms POOR DATA QUALITY, INTERPRETATION MAY BE ADVERSELY AFFECTED NORMAL SINUS RHYTHM NORMAL ECG WHEN COMPARED WITH ECG OF 12-AUG-2017 15:27, NO SIGNIFICANT CHANGE WAS FOUND Confirmed by ARELIS LIND, SLOANE ([id number]) on 11/30/2017 11:04:15 AM Referred By: Confirmed By:SLOANE INFANTE MD
--- NOTE | 2017-11-30 12:26 | PN ---
[facility] CIWA - CIWA Score Nausea/Vomitin-No Nausea/No Vomiting Muscle Tremors: 4-Moderate,w/Arms Extend Anxiety: 4-Mod. Anxious/Guarded Agitation: 3 Paroxysmal Sweats: No Perspiration Orientation: 2-Disoriented Date<2 days Tacttile Disturbances: 2-Mild Itch/Numbness/Burn Auditory Disturbances: 0-None Visual Disturbances: 0-None Headache: 0-None Present CIWA-Ar Total Score: 15 S Progress Note (SOAP) Subjective: Anxious, Sweating, Tremors, Interrupted Sleep. Objective: PT. A & O X 2 (UNCERTAIN ABOUT CURRENT DAY/ DATE), OBSERVED AMBULATING ON UNIT. NO ACUTE DISTRESS. 11/30/17 12:27 Vital Signs Temperature 96.1 F L 11/30/17 11:07 Pulse Rate 85 11/30/17 11:07 Respiratory Rate 16 11/30/17 11:07 Blood Pressure 120/79 11/30/17 11:07 O2 Sat by Pulse Oximetry (%) Laboratory Tests 11/29/17 11/30/17 11/30/17 23:25 07:00 07:00 WBC 7.8 RBC 4.06 Hgb 13.2 Hct 39.8 MCV 98.0 H MCH 32.5 MCHC 33.1 RDW 14.7 Plt Count 303 MPV 9.3 Sodium 143 Potassium 4.4 Chloride 106 Carbon Dioxide 32 Anion Gap 5 L BUN 19 H Creatinine 0.6 L Creat Clearance w eGFR > 60 Random Glucose 74 Calcium 7.9 L Total Bilirubin 0.5 AST 26 ALT 20 Alkaline Phosphatase 82 Total Protein 5.9 L Albumin 3.3 L Urine Color Colorless Urine Appearance Clear Urine pH 6.0 Ur Specific [place] 1.004 Urine Protein Negative Urine Glucose (UA) Negative Urine Ketones Negative Urine Blood 1+ H Urine Nitrite Negative Urine Bilirubin Negative Urine Urobilinogen Negative Ur Leukocyte Esterase Negative Urine WBC (Auto) <1 Urine RBC (Auto) <1 RPR Titer 11/30/17 07:00 WBC RBC Hgb Hct MCV MCH MCHC RDW Plt Count MPV Sodium Potassium Chloride Carbon Dioxide Anion Gap BUN Creatinine Creat Clearance w eGFR Random Glucose Calcium Total Bilirubin AST ALT Alkaline Phosphatase Total Protein Albumin Urine Color Urine Appearance Urine pH Ur Specific [place] Urine Protein Urine Glucose (UA) Urine Ketones Urine Blood Urine Nitrite Urine Bilirubin Urine Urobilinogen Ur Leukocyte Esterase Urine WBC (Auto) Urine RBC (Auto) RPR Titer Nonreactive LABS NOTED. Assessment: 11/30/17 12:27 WITHDRAWAL SYMPTOMS. Plan: CONTINUE DETOX. INCREASE DAILY PO FLUID INTAKE.
[2017-11-30] MEDS: THIAMINE HCL 100 MG TABLET (FP) PO SCH (22:21)
[2017-11-30] MEDS: ATORVASTATIN CA 20 MG TABLET (FP) PO SCH (22:21)
[2017-12-01] MEDS: chlordiazePOXIDE HCL 25 MG CAPSULE PO SCH ×2 (05:28→10:36)
[2017-12-01] MEDS: ASPIRIN COATED 81 MG TABLET.EC PO SCH (10:36)
[2017-12-01] MEDS: PRENATAL VITAMINS W/ FOLIC ACID TABLET (FP) PO SCH (10:36)
[2017-12-01] MEDS: TAMSULOSIN HCL 0.4 MG CAP.ER.24H (FP) PO SCH (10:36)
[2017-12-01] MEDS: NICOTINE 21 MG/24 HOURS TOPICAL PATCH TD SCH (10:36)
--- NOTE | 2017-12-01 15:41 | PN ---
[facility] CIWA - CIWA Score Nausea/Vomitin-No Nausea/No Vomiting Muscle Tremors: 4-Moderate,w/Arms Extend Anxiety: 4-Mod. Anxious/Guarded Agitation: 3 Paroxysmal Sweats: 2 Orientation: 0-Oriented Tacttile Disturbances: 2-Mild Itch/Numbness/Burn Auditory Disturbances: 1-Very Mild Visual Disturbances: 0-None Headache: 0-None Present CIWA-Ar Total Score: 16 S Progress Note (SOAP) Subjective: Tremors, Sweating, Fatigue, Interrupted Sleep. Objective: PT. A & O X 3, OBSERVED AMBULATING ON UNIT. NO ACUTE DISTRESS. 12/01/17 15:39 Vital Signs Temperature 96.4 F L 12/01/17 13:38 Pulse Rate 83 12/01/17 13:38 Respiratory Rate 18 12/01/17 13:38 Blood Pressure 119/79 12/01/17 13:38 O2 Sat by Pulse Oximetry (%) Laboratory Tests 11/29/17 11/30/17 11/30/17 23:25 07:00 07:00 WBC 7.8 RBC 4.06 Hgb 13.2 Hct 39.8 MCV 98.0 H MCH 32.5 MCHC 33.1 RDW 14.7 Plt Count 303 MPV 9.3 Sodium 143 Potassium 4.4 Chloride 106 Carbon Dioxide 32 Anion Gap 5 L BUN 19 H Creatinine 0.6 L Creat Clearance w eGFR > 60 Random Glucose 74 Calcium 7.9 L Total Bilirubin 0.5 AST 26 ALT 20 Alkaline Phosphatase 82 Total Protein 5.9 L Albumin 3.3 L Urine Color Colorless Urine Appearance Clear Urine pH 6.0 Ur Specific [place] 1.004 Urine Protein Negative Urine Glucose (UA) Negative Urine Ketones Negative Urine Blood 1+ H Urine Nitrite Negative Urine Bilirubin Negative Urine Urobilinogen Negative Ur Leukocyte Esterase Negative Urine WBC (Auto) <1 Urine RBC (Auto) <1 RPR Titer 11/30/17 07:00 WBC RBC Hgb Hct MCV MCH MCHC RDW Plt Count MPV Sodium Potassium Chloride Carbon Dioxide Anion Gap BUN Creatinine Creat Clearance w eGFR Random Glucose Calcium Total Bilirubin AST ALT Alkaline Phosphatase Total Protein Albumin Urine Color Urine Appearance Urine pH Ur Specific [place] Urine Protein Urine Glucose (UA) Urine Ketones Urine Blood Urine Nitrite Urine Bilirubin Urine Urobilinogen Ur Leukocyte Esterase Urine WBC (Auto) Urine RBC (Auto) RPR Titer Nonreactive LABS NOTED. Assessment: 12/01/17 15:40 WITHDRAWAL SYMPTOMS. Plan: CONTINUE DETOX.
[2017-12-01] MEDS: chlordiazePOXIDE 5 MG CAPSULE PO SCH ×2 (17:17→22:37)
[2017-12-01] MEDS: ATORVASTATIN CA 20 MG TABLET (FP) PO SCH (22:37)
[2017-12-01] MEDS: THIAMINE HCL 100 MG TABLET (FP) PO SCH (22:37)
[2017-12-02] MEDS: chlordiazePOXIDE 5 MG CAPSULE PO SCH ×2 (05:49→10:36)
[2017-12-02] MEDS: ASPIRIN COATED 81 MG TABLET.EC PO SCH (10:35)
[2017-12-02] MEDS: PRENATAL VITAMINS W/ FOLIC ACID TABLET (FP) PO SCH (10:35)
[2017-12-02] MEDS: NICOTINE 21 MG/24 HOURS TOPICAL PATCH TD SCH (10:36)
[2017-12-02] MEDS: TAMSULOSIN HCL 0.4 MG CAP.ER.24H (FP) PO SCH (10:36)
--- NOTE | 2017-12-02 16:32 | PN ---
BHS Progress Note (SOAP) Subjective: Sweating, Interrupted Sleep. Objective: PT. A & O X 3, OBSERVED AMBULATING ON UNIT. NO ACUTE DISTRESS. 12/02/17 16:31 Vital Signs Temperature 97.2 F L 12/02/17 13:39 Pulse Rate 88 12/02/17 13:39 Respiratory Rate 18 12/02/17 13:39 Blood Pressure 102/69 12/02/17 13:39 O2 Sat by Pulse Oximetry (%) Laboratory Tests 11/29/17 11/30/17 11/30/17 23:25 07:00 07:00 WBC 7.8 RBC 4.06 Hgb 13.2 Hct 39.8 MCV 98.0 H MCH 32.5 MCHC 33.1 RDW 14.7 Plt Count 303 MPV 9.3 Sodium 143 Potassium 4.4 Chloride 106 Carbon Dioxide 32 Anion Gap 5 L BUN 19 H Creatinine 0.6 L Creat Clearance w eGFR > 60 Random Glucose 74 Calcium 7.9 L Total Bilirubin 0.5 AST 26 ALT 20 Alkaline Phosphatase 82 Total Protein 5.9 L Albumin 3.3 L Urine Color Colorless Urine Appearance Clear Urine pH 6.0 Ur Specific [place] 1.004 Urine Protein Negative Urine Glucose (UA) Negative Urine Ketones Negative Urine Blood 1+ H Urine Nitrite Negative Urine Bilirubin Negative Urine Urobilinogen Negative Ur Leukocyte Esterase Negative Urine WBC (Auto) <1 Urine RBC (Auto) <1 RPR Titer 11/30/17 07:00 WBC RBC Hgb Hct MCV MCH MCHC RDW Plt Count MPV Sodium Potassium Chloride Carbon Dioxide Anion Gap BUN Creatinine Creat Clearance w eGFR Random Glucose Calcium Total Bilirubin AST ALT Alkaline Phosphatase Total Protein Albumin Urine Color Urine Appearance Urine pH Ur Specific [place] Urine Protein Urine Glucose (UA) Urine Ketones Urine Blood Urine Nitrite Urine Bilirubin Urine Urobilinogen Ur Leukocyte Esterase Urine WBC (Auto) Urine RBC (Auto) RPR Titer Nonreactive LABS NOTED. Assessment: 12/02/17 16:31 WITHDRAWAL SYMPTOMS. Plan: CONTINUE DETOX.
[2017-12-02] MEDS: chlordiazePOXIDE HCL 10 MG CAPSULE PO SCH ×2 (17:07→22:42)
[2017-12-02] MEDS: ATORVASTATIN CA 20 MG TABLET (FP) PO SCH (22:42)
[2017-12-02] MEDS: THIAMINE HCL 100 MG TABLET (FP) PO SCH (22:42)
[2017-12-03 06:19] VITALS: BP 107/62; PULSE 76; TEMP 98.7
[2017-12-03] MEDS: chlordiazePOXIDE HCL 10 MG CAPSULE PO SCH (06:21)
[2017-12-03] MEDS: TAMSULOSIN HCL 0.4 MG CAP.ER.24H (FP) PO SCH (08:12)
--- NOTE | 2017-12-03 16:13 | DS ---
[facility] Detox Discharge Summary Admission Date: 11/29/17 Discharge Date: 12/03/17 - History Present History: Alcohol Dependence Additional Comments: PATIENT GOING HOME. PATIENT ADVISED TO CONSIDER LOCAL 12-STEP / NA/ AA OUTPATIENT SUPPORT GROUPS FOR AFTERCARE. PATIENT WAS DISCHARGED FROM DETOX UNIT IN STABLE MEDICAL CONDITION. Pertinent Past History: Hypercholesterolemia, HTN, BPH, Depression, Dehydration, Nicotine Dependence, Anxiety. - Physical Exam Results Vital Signs: Vital Signs Temperature 98.7 F 12/03/17 06:19 Pulse Rate 76 12/03/17 06:19 Respiratory Rate 16 12/03/17 06:19 Blood Pressure 107/62 12/03/17 06:19 O2 Sat by Pulse Oximetry (%) Pertinent Admission Physical Exam Findings: WITHDRAWAL SYMPTOMS. Laboratory Tests 11/29/17 11/30/17 11/30/17 23:25 07:00 07:00 WBC 7.8 RBC 4.06 Hgb 13.2 Hct 39.8 MCV 98.0 H MCH 32.5 MCHC 33.1 RDW 14.7 Plt Count 303 MPV 9.3 Sodium 143 Potassium 4.4 Chloride 106 Carbon Dioxide 32 Anion Gap 5 L BUN 19 H Creatinine 0.6 L Creat Clearance w eGFR > 60 Random Glucose 74 Calcium 7.9 L Total Bilirubin 0.5 AST 26 ALT 20 Alkaline Phosphatase 82 Total Protein 5.9 L Albumin 3.3 L Urine Color Colorless Urine Appearance Clear Urine pH 6.0 Ur Specific [place] 1.004 Urine Protein Negative Urine Glucose (UA) Negative Urine Ketones Negative Urine Blood 1+ H Urine Nitrite Negative Urine Bilirubin Negative Urine Urobilinogen Negative Ur Leukocyte Esterase Negative Urine WBC (Auto) <1 Urine RBC (Auto) <1 RPR Titer 11/30/17 07:00 WBC RBC Hgb Hct MCV MCH MCHC RDW Plt Count MPV Sodium Potassium Chloride Carbon Dioxide Anion Gap BUN Creatinine Creat Clearance w eGFR Random Glucose Calcium Total Bilirubin AST ALT Alkaline Phosphatase Total Protein Albumin Urine Color Urine Appearance Urine pH Ur Specific [place] Urine Protein Urine Glucose (UA) Urine Ketones Urine Blood Urine Nitrite Urine Bilirubin Urine Urobilinogen Ur Leukocyte Esterase Urine WBC (Auto) Urine RBC (Auto) RPR Titer Nonreactive LABS NOTED. - Treatment Hospital Course: Detox Protocol Followed, Detoxed Safely, Responded well, Discharged Condition Good Patient has Accepted a Rehab Referral to: PT ADVISED TO CONSIDER LOCAL 12-STEP/ AA/NA OUTPATIENT SUPPORT GROUPS. - Medication Discharge Medications: Ambulatory Orders Tamsulosin HCl [Flomax] 0.4 mg PO DAILY 08/12/17 - Diagnosis (1) Alcohol dependence with uncomplicated withdrawal Status: Acute (2) Anxious mood Status: Acute (3) Dehydration Status: Acute (4) Depressed affect Status: Acute (5) Nicotine dependence Status: Chronic Qualifiers: Nicotine product type: cigarettes Substance use status: in withdrawal Qualified Code(s): F17.213 - Nicotine dependence, cigarettes, with withdrawal - AMA Did Patient Leave Against Medical Advice: No
== END 2017-12-03 09:32 | disposition home or self-care (01) | DRG 775 ==
LOC: YASAS 13:15 → Y3N 17:06
PROVIDERS: ADMIT Internal Medicine; ATTEND Internal Medicine
PROC: HZ2ZZZZ Detoxification Services for Substance Abuse Treatment (ICD-10-PCS; principal; 2017-11-29)
DX: F10.230 Alcohol dependence with withdrawal, uncomplicated (principal); F17.210 Nicotine dependence, cigarettes, uncomplicated; F41.9 Anxiety disorder, unspecified; F39 Unspecified mood [affective] disorder; F32.9 Major depressive disorder, single episode, unspecified; I10 Essential (primary) hypertension; N40.0 Benign prostatic hyperplasia without lower urinary tract symptoms; E86.0 Dehydration; R45.89 Other symptoms and signs involving emotional state
CPT/HCPCS: 36415; 80053; 81003; 81015; 85027; 86593; 93005; 93010

== ENCOUNTER 2018-06-20 10:19 | Inpatient (IN) | payer OTHER ==
[2018-06-20 10:33] VITALS: BMI 19.1
--- NOTE | 2018-06-20 12:33 | HP ---
CIWA Score - CIWA Score Nausea/Vomitin Muscle Tremors: 3 Anxiety: 3 Agitation: 3 Paroxysmal Sweats: 1-Minimal Palms Moist Orientation: 0-Oriented Tacttile Disturbances: 1-Very Mild Itch/Numbness Auditory Disturbances: 1-Very Mild Visual Disturbances: 0-None Headache: 2-Mild CIWA-Ar Total Score: 17 Admission ROS BHS - HPI Chief Complaint: i need help to stop drinking alcohol Allergies/Adverse Reactions: Allergies Allergy/AdvReac Type Severity Reaction Status Date / Time No Known Allergies Allergy Verified 06/20/18 10:52 History of Present Illness: this 62 years old male with alcohol dependence,seeking detox,withdrawal symptom, last detox 11/29/17 to 12/03/17 syncope alcohol related nicotine dependence longest period of sobriety 3 years multiple admissions in detox but keep relapsing Exam Limitations: No Limitations - Ebola screening Have you traveled outside of the country in the last 21 days: No Have you been sick,other than usual withdrawal symptoms: No - Review of Systems Constitutional: Loss of Appetite, Malaise, Night Sweats, Changes in sleep, Weakness, Unintentional Wgt. Loss EENT: reports: Nose Congestion Respiratory: reports: No Symptoms reported Cardiac: reports: No Symptoms Reported GI: reports: Nausea, Vomiting, Abdominal cramping : reports: No Symptoms Reported Musculoskeletal: reports: Back Pain, Muscle Pain Integumentary: reports: Dryness Neuro: reports: Headache, Tremors Endocrine: reports: No Symptoms Reported Hematology: reports: No Symptoms Reported Psychiatric: reports: No Sypmtoms Reported Patient History - Patient Medical History Hx Anemia: No Hx Asthma: No Hx Chronic Obstructive Pulmonary Disease (COPD): No Hx Cancer: No Hx Cardiac Disorders: No Hx Congestive Heart Failure: No Hx Hypertension: No Hx Hypercholesterolemia: Yes (no medciation) Hx Pacemaker: No HX Cerebrovascular Accident: No Hx Seizures: No Hx Dementia: No Hx Diabetes: No Hx Gastrointestinal Disorders: No Hx Liver Disease: No Hx Genitourinary Disorders: Yes (bph) Hx Sexually Transmitted Disorders: No Hx Renal Disease (ESRD): No Hx Thyroid Disease: No Hx Human Immunodeficiency Virus (HIV): No (in 2012 negative) Hx Hepatitis C: No Hx Depression: No Hx Suicide Attempt: No Hx Bipolar Disorder: No Hx Schizophrenia: No Other Medical History: no suicidal,no homicidal - Patient Surgical History Past Surgical History: No Hx Neurologic Surgery: No Hx Cataract Extraction: No Hx Cardiac Surgery: No Hx Lung Surgery: No Hx Breast Surgery: No Hx Breast Biopsy: No Hx Abdominal Surgery: No Hx Appendectomy: No Hx Cholecystectomy: No Hx Genitourinary Surgery: No Hx Section: No Hx Orthopedic Surgery: No Hx Hysterectomy: No Anesthesia Reaction: No - PPD History Previous Implant?: Yes Documented Results: Positive w/o proof Date: 10/06/12 Results: 15 mm PPD to be Administered?: No - Smoking Cessation Smoking history: Current every day smoker Have you smoked in the past 12 months: Yes Aproximately how many cigarettes per day: 20 Cigars Per Day: 0 Hx Chewing Tobacco Use: No Initiated information on smoking cessation: Yes 'Breaking Loose' booklet given: 06/20/18 - Substance & Tx. History Hx Alcohol Use: Yes Hx Substance Use: No Substance Use Type: Alcohol Hx Substance Use Treatment: Yes ([facility] 11/29/17 to 12/03/17) - Substances Abused Alcohol-vodka/beer Route: Oral Frequency: Daily Amount used: 1 pt./1-6 pk. Age of first use: 23 Date of Last Use: 06/20/18 Family Disease History - Family Disease History Family Disease History: Other: Father (alcoholism), Mother (alcoholism), Brother (addiction, alcoholism) Admission Physical Exam BHS - Vital Signs Vital Signs: Vital Signs - 24 hr 06/20/18 10:29 Temperature 98.4 F Pulse Rate 96 H Respiratory 18 Rate Blood Pressure 122/73 - Physical General Appearance: Yes: Moderate Distress, Tremorous, Irritable, Sweating, Anxious HEENTM: Yes: Normal ENT Inspection, DADA, Pharynx Normal Respiratory: Yes: Lungs Clear, Normal Breath Sounds, No Respiratory Distress Neck: Yes: Within Normal Limits, Supple, Trachea in good position Breast: Yes: Within Normal Limits Cardiology: Yes: Within Normal Limits, Regular Rhythm, Regular Rate, S1, S2 Abdominal: Yes: Within Normal Limits, Normal Bowel Sounds, Non Tender, Flat, Soft Genitourinary: Yes: Within Normal Limits Back: Yes: Muscle Spasm Musculoskeletal: Yes: Back pain, Muscle Pain Extremities: Yes: Tremors 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, Fully Oriented, Alert, Motor Strength 5/5 Integumentary: Yes: Dry Lymphatic: Yes: Within Normal Limits - Diagnostic (1) Alcohol dependence with uncomplicated withdrawal Current Visit: No Status: Acute (2) Dehydration Current Visit: No Status: Acute (3) Nicotine dependence Current Visit: No Status: Chronic Qualifiers: Nicotine product type: cigarettes Substance use status: in withdrawal Qualified Code(s): F17.213 - Nicotine dependence, cigarettes, with withdrawal (4) Weight loss Current Visit: Yes Status: Acute (5) Syncope Current Visit: Yes Status: Acute (6) BPH (benign prostatic hyperplasia) Current Visit: Yes Status: Acute Cleared for Admission S - Detox or Rehab [facility] Level of Care: Medically Managed Detox Regimen/Protocol: Librium [facility] Breath Alcohol Content Breath Alcohol Content: 0.203 Urine Drug Screen - Results Drug Screen Negative: No Urine Drug Screen Results: THC-Marijuana
[2018-06-20] MEDS ORDERED: MAGNESIUM CITRATE 300 ML BOTTLE PO PRN (12:46)
[2018-06-20] MEDS ORDERED: MAGNESIUM HYDROX 2400MG/30ML ORAL SUSPENSION 30 ML CUP PO PRN (12:46)
[2018-06-20] MEDS ORDERED: guaiFENesin/D-METHORPHAN HB 10 ML UNIT-DOSE CUPS PO PRN (12:46)
[2018-06-20] MEDS ORDERED: hydrOXYzine PAMOATE 50 MG CAPSULE (FP) PO PRN (12:46)
[2018-06-20] MEDS ORDERED: P-EPHED 60MG/TRIPROLIDI 2.5MG TABLET PO PRN (12:46)
[2018-06-20] MEDS ORDERED: LOPERAMIDE HCL 2 MG CAPSULE PO PRN (12:46)
[2018-06-20] MEDS ORDERED: MENTHOL/PHENOL 1 EACH UD MM PRN (12:46)
[2018-06-20] MEDS ORDERED: IBUPROFEN 400 MG TABLET (FP) PO PRN (12:46)
[2018-06-20] MEDS ORDERED: MAG HYDROX/AL HYDROX/SIMETH 30 ML UNIT-DOSE CUP PO PRN (12:46)
[2018-06-20] MEDS ORDERED: ACETAMINOPHEN 325 MG TABLET (FP) PO PRN (12:46)
[2018-06-20] MEDS ORDERED: chlordiazePOXIDE HCL 25 MG CAPSULE PO PRN (12:46)
[2018-06-20] MEDS: NICOTINE 21 MG/24 HOURS TOPICAL PATCH TD SCH (15:56)
[2018-06-20] MEDS: chlordiazePOXIDE HCL 25 MG CAPSULE PO SCH ×2 (18:09→22:09)
[2018-06-20] MEDS: THIAMINE HCL 100 MG TABLET (FP) PO SCH (22:08)
[2018-06-20] MEDS: MELATONIN 5 MG TABLETS PO PRN (22:10)
[2018-06-20 23:24] LABS: URINE APPEARANCE CLEAR; URINE BILIRUBIN NEGATIVE (<2.0 mg/dL); URINE COLOR COLORLESS; URINE GLUCOSE (UA) NEGATIVE (NEGATIVE); URINE KETONE NEGATIVE (NEGATIVE); URINE LEUK ESTERASE NEGATIVE (NEGATIVE); URINE NITRITE NEGATIVE (NEGATIVE); URINE PROTEIN NEGATIVE (NEGATIVE); URINE UROBILINOGEN NEGATIVE mg/dL (0.2-1.0)
[2018-06-21] MEDS: chlordiazePOXIDE HCL 25 MG CAPSULE PO SCH ×4 (05:03→22:10)
[2018-06-21 10:18] LABS: HEMATOCRIT 43.4 % (35.4-49); HEMOGLOBIN 14.8 GM/dL (11.7-16.9); MCH 32.6 pg (25.7-33.7); MEAN CELL VOLUME 95.9 fl (80-96); PLATELET COUNT 292 K/MM3 (134-434); RBC 4.53 M/mm3 (4.00-5.60); RDW 13.5 % (11.9-15.9); WHITE BLOOD COUNT 9.6 K/mm3 (4.0-10.0)
[2018-06-21] MEDS: PRENATAL VITAMINS W/ FOLIC ACID TABLET (FP) PO SCH (10:32)
[2018-06-21] MEDS: NICOTINE 21 MG/24 HOURS TOPICAL PATCH TD SCH (10:32)
[2018-06-21] MEDS: TAMSULOSIN HCL 0.4 MG CAP.ER.24H (FP) PO SCH (10:32)
[2018-06-21 10:35] LABS: CHLORIDE 103 mmol/L (98-107); POTASSIUM 4.3 mmol/L (3.5-5.1); SODIUM 142 mmol/L (136-145)
[2018-06-21 10:50] LABS: ALBUMIN 4.3 g/dl (3.4-5.0); ALK PHOS 102 U/L (45-117); ANION GAP 14 MMOL/L (8-16); BILIRUBIN,TOTAL 0.3 mg/dL (0.2-1.0); BLOOD UREA NITROGEN 9 mg/dL (7-18); CALCIUM 8.8 mg/dL (8.5-10.1); CO2 25 mmol/L (21-32); CREATININE 0.7 mg/dL (0.7-1.3); GLUCOSE,RANDOM 92 mg/dL (74-106); SGOT/AST 33 U/L (15-37); SGPT/ALT 32 U/L (12-78); TOT PROT 7.6 g/dl (6.4-8.2)
--- NOTE | 2018-06-21 11:09 | PN ---
S CIWA - CIWA Score Nausea/Vomitin-No Nausea/No Vomiting Muscle Tremors: 4-Moderate,w/Arms Extend Anxiety: 4-Mod. Anxious/Guarded Agitation: 4-Moderately Restless Paroxysmal Sweats: 1-Minimal Palms Moist Orientation: 0-Oriented Tacttile Disturbances: 0-None Auditory Disturbances: 0-None Visual Disturbances: 0-None Headache: 0-None Present CIWA-Ar Total Score: 13 BHS Progress Note (SOAP) Subjective: PT REPORTS SLIGHT ANXIETY, SWEATS. DETOX TAPER PROCEEDING WELL. Objective: 06/21/18 11:10 Vital Signs 06/21/18 06/21/18 06/21/18 03:30 04:00 04:30 Temperature Pulse Rate 84 81 81 Respiratory 18 18 18 Rate Blood Pressure 06/21/18 06/21/18 06/21/18 05:00 05:30 06:00 Temperature Pulse Rate 85 83 81 Respiratory 18 18 18 Rate Blood Pressure 06/21/18 06/21/18 06/21/18 06:13 06:30 07:00 Temperature 97.7 F Pulse Rate 81 79 77 Respiratory 18 18 18 Rate Blood Pressure 121/78 06/21/18 06/21/18 06/21/18 07:30 08:00 08:30 Temperature Pulse Rate 75 73 74 Respiratory 18 18 18 Rate Blood Pressure 06/21/18 06/21/18 06/21/18 09:00 09:30 10:00 Temperature Pulse Rate 75 75 76 Respiratory 20 18 18 Rate Blood Pressure 06/21/18 10:59 Temperature 98.6 F Pulse Rate 73 Respiratory 18 Rate Blood Pressure 122/72 Laboratory Tests 06/20/18 06/21/18 06/21/18 21:40 06:10 06:10 WBC 9.6 RBC 4.53 Hgb 14.8 Hct 43.4 MCV 95.9 MCH 32.6 MCHC 34.0 RDW 13.5 Plt Count 292 MPV 10.0 Sodium 142 Potassium 4.3 Chloride 103 Carbon Dioxide 25 D Anion Gap 14 BUN 9 Creatinine 0.7 Creat Clearance w eGFR > 60 Random Glucose 92 D Calcium 8.8 Total Bilirubin 0.3 AST 33 D ALT 32 D Alkaline Phosphatase 102 Total Protein 7.6 Albumin 4.3 Urine Color Colorless Urine Appearance Clear Urine pH 6.0 Ur Specific [place] 1.002 Urine Protein Negative Urine Glucose (UA) Negative Urine Ketones Negative Urine Blood 1+ H Urine Nitrite Negative Urine Bilirubin Negative Urine Urobilinogen Negative Ur Leukocyte Esterase Negative Urine WBC (Auto) <1 Urine RBC (Auto) None Assessment: 06/21/18 11:11 WITHDRAWAL SX Plan: CONTINUE DETOX INCREASE PO FLUIDS
--- NOTE | 2018-06-21 16:07 | EKG ---
Test Reason : Blood Pressure : / mmHG Vent. Rate : 095 BPM Atrial Rate : 095 BPM P-R Int : 134 ms QRS Dur : 092 ms QT Int : 344 ms P-R-T Axes : 077 076 068 degrees QTc Int : 432 ms NORMAL SINUS RHYTHM NORMAL ECG WHEN COMPARED WITH ECG OF 29-NOV-2017 17:54, NO SIGNIFICANT CHANGE WAS FOUND Confirmed by Chen Guido ([id number]) on 06/21/2018 4:07:13 PM Referred By: Confirmed By:Chen Guido
[2018-06-21] MEDS: MELATONIN 5 MG TABLETS PO PRN (22:10)
[2018-06-21] MEDS: THIAMINE HCL 100 MG TABLET (FP) PO SCH (22:10)
[2018-06-22] MEDS: chlordiazePOXIDE HCL 25 MG CAPSULE PO SCH ×2 (05:15→10:18)
[2018-06-22] MEDS: TAMSULOSIN HCL 0.4 MG CAP.ER.24H (FP) PO SCH (10:18)
[2018-06-22] MEDS: NICOTINE 21 MG/24 HOURS TOPICAL PATCH TD SCH (10:18)
[2018-06-22] MEDS: PRENATAL VITAMINS W/ FOLIC ACID TABLET (FP) PO SCH (10:18)
--- NOTE | 2018-06-22 11:01 | PN ---
S CIWA - CIWA Score Nausea/Vomitin-No Nausea/No Vomiting Muscle Tremors: 4-Moderate,w/Arms Extend Anxiety: 4-Mod. Anxious/Guarded Agitation: 4-Moderately Restless Paroxysmal Sweats: 1-Minimal Palms Moist Orientation: 0-Oriented Tacttile Disturbances: 0-None Auditory Disturbances: 0-None Visual Disturbances: 0-None Headache: 0-None Present CIWA-Ar Total Score: 13 BHS Progress Note (SOAP) Subjective: ANXIETY,SWEATS,TREMORS,FATIGUE. Objective: 06/22/18 11:01 Vital Signs 06/22/18 06/22/18 06/22/18 03:30 06:15 09:09 Temperature 97.4 F L 97 F L Pulse Rate 70 93 H Respiratory 16 16 20 Rate Blood Pressure 118/69 108/84 Laboratory Tests 06/20/18 06/21/18 06/21/18 21:40 06:10 06:10 WBC 9.6 RBC 4.53 Hgb 14.8 Hct 43.4 MCV 95.9 MCH 32.6 MCHC 34.0 RDW 13.5 Plt Count 292 MPV 10.0 Sodium 142 Potassium 4.3 Chloride 103 Carbon Dioxide 25 D Anion Gap 14 BUN 9 Creatinine 0.7 Creat Clearance w eGFR > 60 Random Glucose 92 D Calcium 8.8 Total Bilirubin 0.3 AST 33 D ALT 32 D Alkaline Phosphatase 102 Total Protein 7.6 Albumin 4.3 Urine Color Colorless Urine Appearance Clear Urine pH 6.0 Ur Specific [place] 1.002 Urine Protein Negative Urine Glucose (UA) Negative Urine Ketones Negative Urine Blood 1+ H Urine Nitrite Negative Urine Bilirubin Negative Urine Urobilinogen Negative Ur Leukocyte Esterase Negative Urine WBC (Auto) <1 Urine RBC (Auto) None RPR Titer 06/21/18 06:10 WBC RBC Hgb Hct MCV MCH MCHC RDW Plt Count MPV Sodium Potassium Chloride Carbon Dioxide Anion Gap BUN Creatinine Creat Clearance w eGFR Random Glucose Calcium Total Bilirubin AST ALT Alkaline Phosphatase Total Protein Albumin Urine Color Urine Appearance Urine pH Ur Specific [place] Urine Protein Urine Glucose (UA) Urine Ketones Urine Blood Urine Nitrite Urine Bilirubin Urine Urobilinogen Ur Leukocyte Esterase Urine WBC (Auto) Urine RBC (Auto) RPR Titer Nonreactive Assessment: 06/22/18 11:02 WITHDRAWAL SX Plan: CONTINUE DETOX
[2018-06-22] MEDS: chlordiazePOXIDE 5 MG CAPSULE PO SCH ×2 (17:12→22:17)
[2018-06-22] MEDS: THIAMINE HCL 100 MG TABLET (FP) PO SCH (22:17)
[2018-06-22] MEDS: MELATONIN 5 MG TABLETS PO PRN (22:18)
[2018-06-23] MEDS: chlordiazePOXIDE 5 MG CAPSULE PO SCH ×2 (05:30→10:52)
[2018-06-23] MEDS: TAMSULOSIN HCL 0.4 MG CAP.ER.24H (FP) PO SCH (10:52)
[2018-06-23] MEDS: NICOTINE 21 MG/24 HOURS TOPICAL PATCH TD SCH (10:52)
[2018-06-23] MEDS: PRENATAL VITAMINS W/ FOLIC ACID TABLET (FP) PO SCH (10:52)
--- NOTE | 2018-06-23 14:53 | PN ---
BHS Progress Note (SOAP) Subjective: Tremors, Fatigue. Objective: PATIENT A & O X 3, OBSERVED AMBULATING ON UNIT. NO ACUTE DISTRESS. 06/23/18 14:51 Vital Signs Temperature 97 F L 06/23/18 09:27 Pulse Rate 71 06/23/18 09:27 Respiratory Rate 18 06/23/18 09:27 Blood Pressure 101/69 06/23/18 09:27 O2 Sat by Pulse Oximetry (%) Laboratory Tests 06/20/18 06/21/18 06/21/18 21:40 06:10 06:10 WBC 9.6 RBC 4.53 Hgb 14.8 Hct 43.4 MCV 95.9 MCH 32.6 MCHC 34.0 RDW 13.5 Plt Count 292 MPV 10.0 Sodium 142 Potassium 4.3 Chloride 103 Carbon Dioxide 25 D Anion Gap 14 BUN 9 Creatinine 0.7 Creat Clearance w eGFR > 60 Random Glucose 92 D Calcium 8.8 Total Bilirubin 0.3 AST 33 D ALT 32 D Alkaline Phosphatase 102 Total Protein 7.6 Albumin 4.3 Urine Color Colorless Urine Appearance Clear Urine pH 6.0 Ur Specific [place] 1.002 Urine Protein Negative Urine Glucose (UA) Negative Urine Ketones Negative Urine Blood 1+ H Urine Nitrite Negative Urine Bilirubin Negative Urine Urobilinogen Negative Ur Leukocyte Esterase Negative Urine WBC (Auto) <1 Urine RBC (Auto) None RPR Titer 06/21/18 06:10 WBC RBC Hgb Hct MCV MCH MCHC RDW Plt Count MPV Sodium Potassium Chloride Carbon Dioxide Anion Gap BUN Creatinine Creat Clearance w eGFR Random Glucose Calcium Total Bilirubin AST ALT Alkaline Phosphatase Total Protein Albumin Urine Color Urine Appearance Urine pH Ur Specific [place] Urine Protein Urine Glucose (UA) Urine Ketones Urine Blood Urine Nitrite Urine Bilirubin Urine Urobilinogen Ur Leukocyte Esterase Urine WBC (Auto) Urine RBC (Auto) RPR Titer Nonreactive LABS NOTED. Assessment: 06/23/18 14:52 WITHDRAWAL SYMPTOMS. Plan: CONTINUE DETOX. PATIENT SCHEDULED FOR D/C TOMORROW.
[2018-06-23] MEDS: chlordiazePOXIDE HCL 10 MG CAPSULE PO SCH ×2 (17:34→22:05)
[2018-06-23] MEDS: MELATONIN 5 MG TABLETS PO PRN (22:05)
[2018-06-23] MEDS: THIAMINE HCL 100 MG TABLET (FP) PO SCH (22:05)
[2018-06-24] MEDS: chlordiazePOXIDE HCL 10 MG CAPSULE PO SCH (05:37)
[2018-06-24 06:27] VITALS: BP 100/74; PULSE 81; TEMP 97.5
--- NOTE | 2018-06-24 12:17 | DS ---
[facility] Detox Discharge Summary Admission Date: 06/20/18 Discharge Date: 06/24/18 - History Present History: Alcohol Dependence Pertinent Past History: Syncope BPH - Physical Exam Results Vital Signs: Vital Signs Temperature 97.5 F L 06/24/18 06:26 Pulse Rate 81 06/24/18 06:26 Respiratory Rate 18 06/24/18 06:26 Blood Pressure 100/74 06/24/18 06:26 O2 Sat by Pulse Oximetry (%) Pertinent Admission Physical Exam Findings: Withdrawal symptoms - Treatment Hospital Course: Detox Protocol Followed, Detoxed Safely, Responded well, Discharged Condition Good - Medication Discharge Medications: Ambulatory Orders Tamsulosin HCl [Flomax] 0.4 mg PO DAILY 08/12/17 - Diagnosis (1) Alcohol dependence with uncomplicated withdrawal Status: Acute (2) Syncope Status: Chronic Qualifiers: Syncope type: unspecified Qualified Code(s): R55 - Syncope and collapse (3) BPH (benign prostatic hyperplasia) Status: Chronic Qualifiers: Lower urinary tract symptom presence: unspecified whether lower urinary tract symptoms present Qualified Code(s): N40.0 - Benign prostatic hyperplasia without lower urinary tract symptoms (4) Nicotine dependence Status: Chronic Qualifiers: Nicotine product type: cigarettes Substance use status: in withdrawal Qualified Code(s): F17.213 - Nicotine dependence, cigarettes, with withdrawal - AMA Did Patient Leave Against Medical Advice: No (F/U with your PCP within 1-2 weeks )
== END 2018-06-24 09:05 | disposition home or self-care (01) | DRG 775 ==
LOC: YASAS 10:19 → Y3N 12:49
PROVIDERS: ADMIT Surgery; ATTEND Surgery
PROC: HZ2ZZZZ Detoxification Services for Substance Abuse Treatment (ICD-10-PCS; principal; 2018-06-20)
DX: F10.230 Alcohol dependence with withdrawal, uncomplicated (principal); F17.213 Nicotine dependence, cigarettes, with withdrawal; E86.0 Dehydration; E78.00 Pure hypercholesterolemia, unspecified; N40.0 Benign prostatic hyperplasia without lower urinary tract symptoms; R55 Syncope and collapse; R63.4 Abnormal weight loss; Z68.1 Body mass index [BMI] 19.9 or less, adult
CPT/HCPCS: 36415; 80053; 81003; 81015; 85027; 86593; 93005; 93010

== ENCOUNTER 2018-08-09 11:46 | Inpatient (IN) | payer OTHER ==
[2018-08-09 11:55] VITALS: BMI 19.7
--- NOTE | 2018-08-09 17:44 | HP ---
CIWA Score - CIWA Score Nausea/Vomitin-No Nausea/No Vomiting Muscle Tremors: None Anxiety: 2 Agitation: 0-Normal Activity Paroxysmal Sweats: 2 Orientation: 0-Oriented Tacttile Disturbances: 0-None Auditory Disturbances: 0-None Visual Disturbances: 0-None Headache: 0-None Present CIWA-Ar Total Score: 4 Admission ROS BHS - HPI Allergies/Adverse Reactions: Allergies Allergy/AdvReac Type Severity Reaction Status Date / Time No Known Allergies Allergy Verified 08/09/18 15:40 History of Present Illness: pt here requesting detox from etoh use , reports 2 pints of vodka /day x " many years " , reports anxiety if not drinking , denies seizure d/o , denies blackouts or falls . previous admission at this facility 2 mo ago . utox + cannabis . latest use today . fili 0.249 pmhx : denies pshx : denies psych : denies meds : denies tobacco : 1 ppd , requesting nrt w/ patch - Ebola screening Have you traveled outside of the country in the last 21 days: No (N) Have you had contact with anyone from an Ebola affected area: No Have you been sick,other than usual withdrawal symptoms: No Do you have a fever: No - Review of Systems Constitutional: No Symptoms Reported EENT: reports: No Symptoms Reported Respiratory: reports: No Symptoms reported Cardiac: reports: No Symptoms Reported GI: reports: No Symptoms Reported : reports: No Symptoms Reported Musculoskeletal: reports: No Symptoms Reported Integumentary: reports: No Symptoms Reported Neuro: reports: No Symptoms reported Endocrine: reports: No Symptoms Reported Psychiatric: reports: No Sypmtoms Reported, Orientated x3 Patient History - Patient Medical History Hx Anemia: No Hx Asthma: No Hx Chronic Obstructive Pulmonary Disease (COPD): No Hx Cancer: No Hx Cardiac Disorders: No Hx Congestive Heart Failure: No Hx Hypertension: No Hx Hypercholesterolemia: Yes (no medciation) Hx Pacemaker: No HX Cerebrovascular Accident: No Hx Seizures: No Hx Dementia: No Hx Diabetes: No Hx Gastrointestinal Disorders: No Hx Liver Disease: No Hx Genitourinary Disorders: No Hx Sexually Transmitted Disorders: No Hx Renal Disease (ESRD): No Hx Thyroid Disease: No Hx Human Immunodeficiency Virus (HIV): No (in 2012 negative) Hx Hepatitis C: No Hx Depression: No Hx Suicide Attempt: No Hx Bipolar Disorder: No Hx Schizophrenia: No - Patient Surgical History Past Surgical History: No Hx Neurologic Surgery: No Hx Cataract Extraction: No Hx Cardiac Surgery: No Hx Lung Surgery: No Hx Breast Surgery: No Hx Breast Biopsy: No Hx Abdominal Surgery: No Hx Appendectomy: No Hx Cholecystectomy: No Hx Genitourinary Surgery: No Hx Section: No Hx Orthopedic Surgery: No Hx Hysterectomy: No Anesthesia Reaction: No - PPD History Previous Implant?: Yes Documented Results: Positive w/o proof Date: 10/06/12 Results: CXR(-)08/14/17 - Smoking Cessation Smoking history: Current every day smoker Have you smoked in the past 12 months: Yes Aproximately how many cigarettes per day: 20 Cigars Per Day: 0 Hx Chewing Tobacco Use: No Initiated information on smoking cessation: No - Substances Abused Alcohol-vodka/beer Route: Oral Frequency: Daily Amount used: 1 pt./2-6 pks. Age of first use: 23 Date of Last Use: 08/09/18 Family Disease History - Family Disease History Family Disease History: Other: Father (alcoholism), Mother (alcoholism), Brother (addiction, alcoholism) Admission Physical Exam [facility] - Vital Signs Vital Signs: Vital Signs - 24 hr 08/09/18 11:53 Temperature 98.5 F Pulse Rate 87 Respiratory 18 Rate Blood Pressure 118/69 - Physical General Appearance: Yes: Nourished, Appropriately Dressed, Alcohol on Breath, Intoxicated HEENTM: Yes: Hearing grossly Normal Respiratory: Yes: Within Normal Limits, Chest Non-Tender, Lungs Clear, Normal Breath Sounds, No Respiratory Distress, No Accessory Muscle Use Neck: Yes: Within Normal Limits, No masses,lesions,Nodules, Trachea in good position Cardiology: Yes: Within Normal Limits, Regular Rhythm, Regular Rate Back: Yes: Normal Inspection Musculoskeletal: Yes: Gait Steady, Pelvis Stable Extremities: Yes: Normal Capillary Refill, Normal Inspection, Normal Range of Motion, Non-Tender Neurological: Yes: Within Normal Limits, Fully Oriented, Alert, Motor Strength 5 /5, Normal Mood/Affect, Normal Response - Diagnostic (1) Alcohol dependence with uncomplicated withdrawal Current Visit: No Status: Acute (2) Cannabis abuse Current Visit: No Status: Acute (3) Nicotine dependence Current Visit: No Status: Chronic Qualifiers: Substance use status: uncomplicated [facility] Breath Alcohol Content Breath Alcohol Content: 0.249 Urine Drug Screen - Results Drug Screen Negative: No Urine Drug Screen Results: THC-Marijuana
[2018-08-09] MEDS ORDERED: MENTHOL/PHENOL 1 EACH UD MM PRN (17:47)
[2018-08-09] MEDS ORDERED: P-EPHED 60MG/TRIPROLIDI 2.5MG TABLET PO PRN (17:47)
[2018-08-09] MEDS ORDERED: LOPERAMIDE HCL 2 MG CAPSULE PO PRN (17:47)
[2018-08-09] MEDS ORDERED: guaiFENesin/D-METHORPHAN HB 10 ML UNIT-DOSE CUPS PO PRN (17:47)
[2018-08-09] MEDS ORDERED: MAGNESIUM CITRATE 300 ML BOTTLE PO PRN (17:47)
[2018-08-09] MEDS ORDERED: MAG HYDROX/AL HYDROX/SIMETH 30 ML UNIT-DOSE CUP PO PRN (17:47)
[2018-08-09] MEDS ORDERED: IBUPROFEN 400 MG TABLET (FP) PO PRN (17:47)
[2018-08-09] MEDS ORDERED: MAGNESIUM HYDROX 2400MG/30ML ORAL SUSPENSION 30 ML CUP PO PRN (17:47)
[2018-08-09] MEDS ORDERED: ACETAMINOPHEN 325 MG TABLET (FP) PO PRN (17:47)
[2018-08-09] MEDS ORDERED: chlordiazePOXIDE HCL 25 MG CAPSULE PO PRN ×2 (17:47→19:31)
[2018-08-09] MEDS: chlordiazePOXIDE 5 MG CAPSULE PO PRN (19:50)
[2018-08-09] MEDS ORDERED: MELATONIN 5 MG TABLETS PO PRN (22:00)
[2018-08-09] MEDS: THIAMINE HCL 100 MG TABLET (FP) PO SCH (22:24)
[2018-08-09] MEDS: chlordiazePOXIDE HCL 25 MG CAPSULE PO SCH (22:24)
[2018-08-10 01:04] LABS: URINE APPEARANCE CLEAR; URINE BILIRUBIN NEGATIVE (<2.0 mg/dL); URINE COLOR COLORLESS; URINE GLUCOSE (UA) NEGATIVE (NEGATIVE); URINE KETONE NEGATIVE (NEGATIVE); URINE LEUK ESTERASE NEGATIVE (NEGATIVE); URINE NITRITE NEGATIVE (NEGATIVE); URINE PROTEIN NEGATIVE (NEGATIVE); URINE UROBILINOGEN NEGATIVE mg/dL (0.2-1.0)
[2018-08-10] MEDS: chlordiazePOXIDE HCL 25 MG CAPSULE PO SCH ×4 (06:01→22:12)
[2018-08-10 10:02] LABS: HEMATOCRIT 44.9 % (35.4-49); HEMOGLOBIN 14.7 GM/dL (11.7-16.9); MCH 32.3 pg (25.7-33.7); MCHC 32.8 g/dl (32.0-35.9); MEAN CELL VOLUME 98.4 fl (80-96); MEAN PLT VOLUME 10.2 fl (7.5-11.1); PLATELET COUNT 282 K/MM3 (134-434); RBC 4.56 M/mm3 (4.00-5.60); RDW 14.3 % (11.9-15.9); WHITE BLOOD COUNT 8.5 K/mm3 (4.0-10.0)
[2018-08-10 10:23] LABS: ALK PHOS 92 U/L (45-117); ANION GAP 9 MMOL/L (8-16); BILIRUBIN,TOTAL 0.3 mg/dL (0.2-1); BLOOD UREA NITROGEN 9 mg/dL (7-18); CALCIUM 8.9 mg/dL (8.5-10.1); CHLORIDE 104 mmol/L (98-107); CO2 28 mmol/L (21-32); CREATININE 0.7 mg/dL (0.55-1.3); GLUCOSE,RANDOM 86 mg/dL (74-106); POTASSIUM 4.6 mmol/L (3.5-5.1); SGOT/AST 26 U/L (15-37); SGPT/ALT 30 U/L (13-61); SODIUM 141 mmol/L (136-145); TOT PROT 7.4 g/dl (6.4-8.2)
[2018-08-10] MEDS: NICOTINE 14 MG/24 HOURS TOPICAL PATCH TD SCH (11:05)
[2018-08-10] MEDS: PRENATAL VITAMINS W/ FOLIC ACID TABLET (FP) PO SCH (11:05)
[2018-08-10] MEDS: TAMSULOSIN HCL 0.4 MG CAP.ER.24H (FP) PO SCH (11:05)
--- NOTE | 2018-08-10 11:14 | PN ---
S CIWA - CIWA Score Nausea/Vomitin-No Nausea/No Vomiting Muscle Tremors: 3 Anxiety: 2 Agitation: 2 Paroxysmal Sweats: 2 Orientation: 0-Oriented Tacttile Disturbances: 0-None Auditory Disturbances: 0-None Visual Disturbances: 0-None Headache: 0-None Present CIWA-Ar Total Score: 9 BHS Progress Note (SOAP) Subjective: irritable sweats anxiety Objective: 08/10/18 11:13 Vital Signs Temperature 98.2 F 08/10/18 10:10 Pulse Rate 85 08/10/18 10:10 Respiratory Rate 18 08/10/18 10:10 Blood Pressure 106/61 08/10/18 10:10 O2 Sat by Pulse Oximetry (%) Laboratory Tests 08/10/18 08/10/18 08/10/18 00:30 06:00 06:00 WBC 8.5 RBC 4.56 Hgb 14.7 Hct 44.9 MCV 98.4 H MCH 32.3 MCHC 32.8 RDW 14.3 Plt Count 282 MPV 10.2 Sodium 141 Potassium 4.6 Chloride 104 Carbon Dioxide 28 Anion Gap 9 BUN 9 Creatinine 0.7 Creat Clearance w eGFR > 60 Random Glucose 86 Calcium 8.9 Total Bilirubin 0.3 AST 26 ALT 30 Alkaline Phosphatase 92 Total Protein 7.4 Albumin 4.0 Urine Color Colorless Urine Appearance Clear Urine pH 6.0 Ur Specific [place] 1.003 L Urine Protein Negative Urine Glucose (UA) Negative Urine Ketones Negative Urine Blood Negative Urine Nitrite Negative Urine Bilirubin Negative Urine Urobilinogen Negative Ur Leukocyte Esterase Negative aaox3 ambulating no acute distress Assessment: 08/10/18 11:14 withdrawal sx Plan: continue detox increase fluids
[2018-08-10] MEDS: THIAMINE HCL 100 MG TABLET (FP) PO SCH (22:12)
[2018-08-11] MEDS: chlordiazePOXIDE HCL 25 MG CAPSULE PO SCH ×3 (06:20→18:27)
[2018-08-11] MEDS: PRENATAL VITAMINS W/ FOLIC ACID TABLET (FP) PO SCH (10:34)
[2018-08-11] MEDS: TAMSULOSIN HCL 0.4 MG CAP.ER.24H (FP) PO SCH (10:35)
[2018-08-11] MEDS: NICOTINE 14 MG/24 HOURS TOPICAL PATCH TD SCH (10:35)
--- NOTE | 2018-08-11 13:57 | PN ---
[facility] CIWA - CIWA Score Nausea/Vomitin-No Nausea/No Vomiting Muscle Tremors: 2 Anxiety: 3 Agitation: 3 Paroxysmal Sweats: 1-Minimal Palms Moist Orientation: 0-Oriented Tacttile Disturbances: 1-Very Mild Itch/Numbness Auditory Disturbances: 0-None Visual Disturbances: 0-None Headache: 0-None Present CIWA-Ar Total Score: 10 BHS Progress Note (SOAP) Subjective: irritable, anxious, interrupted sleep Objective: 08/11/18 13:56 Vital Signs Temperature 98.1 F 08/11/18 10:33 Pulse Rate 79 08/11/18 10:33 Respiratory Rate 18 08/11/18 10:33 Blood Pressure 123/76 08/11/18 10:33 O2 Sat by Pulse Oximetry (%) Laboratory Last Values WBC 8.5 K/mm3 (4.0-10.0) 08/10/18 06:00 RBC 4.56 M/mm3 (4.00-5.60) 08/10/18 06:00 Hgb 14.7 GM/dL (11.7-16.9) 08/10/18 06:00 Hct 44.9 % (35.4-49) 08/10/18 06:00 MCV 98.4 fl (80-96) H 08/10/18 06:00 MCH 32.3 pg (25.7-33.7) 08/10/18 06:00 MCHC 32.8 g/dl (32.0-35.9) 08/10/18 06:00 RDW 14.3 % (11.9-15.9) 08/10/18 06:00 Plt Count 282 K/MM3 (134-434) 08/10/18 06:00 MPV 10.2 fl (7.5-11.1) 08/10/18 06:00 Sodium 141 mmol/L (136-145) 08/10/18 06:00 Potassium 4.6 mmol/L (3.5-5.1) 08/10/18 06:00 Chloride 104 mmol/L (98-107) 08/10/18 06:00 Carbon Dioxide 28 mmol/L (21-32) 08/10/18 06:00 Anion Gap 9 MMOL/L (8-16) 08/10/18 06:00 BUN 9 mg/dL (7-18) 08/10/18 06:00 Creatinine 0.7 mg/dL (0.55-1.3) 08/10/18 06:00 Creat Clearance w eGFR > 60 (>60) 08/10/18 06:00 Random Glucose 86 mg/dL (74-106) 08/10/18 06:00 Calcium 8.9 mg/dL (8.5-10.1) 08/10/18 06:00 Total Bilirubin 0.3 mg/dL (0.2-1) 08/10/18 06:00 AST 26 U/L (15-37) 08/10/18 06:00 ALT 30 U/L (13-61) 08/10/18 06:00 Alkaline Phosphatase 92 U/L (45-117) 08/10/18 06:00 Total Protein 7.4 g/dl (6.4-8.2) 08/10/18 06:00 Albumin 4.0 g/dl (3.4-5.0) 08/10/18 06:00 Urine Color Colorless 08/10/18 00:30 Urine Appearance Clear 08/10/18 00:30 Urine pH 6.0 (5.0-8.0) 08/10/18 00:30 Ur Specific [place] 1.003 (1.010-1.035) L 08/10/18 00:30 Urine Protein Negative (NEGATIVE) 08/10/18 00:30 Urine Glucose (UA) Negative (NEGATIVE) 08/10/18 00:30 Urine Ketones Negative (NEGATIVE) 08/10/18 00:30 Urine Blood Negative (NEGATIVE) 08/10/18 00:30 Urine Nitrite Negative (NEGATIVE) 08/10/18 00:30 Urine Bilirubin Negative (<2.0 mg/dL) 08/10/18 00:30 Urine Urobilinogen Negative mg/dL (0.2-1.0) 08/10/18 00:30 Ur Leukocyte Esterase Negative (NEGATIVE) 08/10/18 00:30 RPR Titer Nonreactive (NONREACTIVE) 08/10/18 06:00 Aox3 no distress ambulating in the unit independently Assessment: 08/11/18 13:57 withdrawal sx Plan: increase fluids continue detox continue to monitor
[2018-08-11] MEDS: THIAMINE HCL 100 MG TABLET (FP) PO SCH (22:22)
[2018-08-11] MEDS: chlordiazePOXIDE 5 MG CAPSULE PO SCH (22:22)
[2018-08-12] MEDS: chlordiazePOXIDE 5 MG CAPSULE PO PRN (02:12)
[2018-08-12] MEDS: chlordiazePOXIDE 5 MG CAPSULE PO SCH ×3 (06:18→17:23)
[2018-08-12] MEDS: TAMSULOSIN HCL 0.4 MG CAP.ER.24H (FP) PO SCH (11:14)
[2018-08-12] MEDS: PRENATAL VITAMINS W/ FOLIC ACID TABLET (FP) PO SCH (11:14)
[2018-08-12] MEDS: NICOTINE 14 MG/24 HOURS TOPICAL PATCH TD SCH (11:15)
--- NOTE | 2018-08-12 14:57 | PN ---
BHS Progress Note (SOAP) Subjective: feeling better no tremor less sweat sleep better at night Objective: 08/12/18 14:56 Vital Signs Temperature 97.9 F 08/12/18 14:28 Pulse Rate 72 08/12/18 14:28 Respiratory Rate 18 08/12/18 14:28 Blood Pressure 110/77 08/12/18 14:28 O2 Sat by Pulse Oximetry (%) Laboratory Last Values WBC 8.5 K/mm3 (4.0-10.0) 08/10/18 06:00 RBC 4.56 M/mm3 (4.00-5.60) 08/10/18 06:00 Hgb 14.7 GM/dL (11.7-16.9) 08/10/18 06:00 Hct 44.9 % (35.4-49) 08/10/18 06:00 MCV 98.4 fl (80-96) H 08/10/18 06:00 MCH 32.3 pg (25.7-33.7) 08/10/18 06:00 MCHC 32.8 g/dl (32.0-35.9) 08/10/18 06:00 RDW 14.3 % (11.9-15.9) 08/10/18 06:00 Plt Count 282 K/MM3 (134-434) 08/10/18 06:00 MPV 10.2 fl (7.5-11.1) 08/10/18 06:00 Sodium 141 mmol/L (136-145) 08/10/18 06:00 Potassium 4.6 mmol/L (3.5-5.1) 08/10/18 06:00 Chloride 104 mmol/L (98-107) 08/10/18 06:00 Carbon Dioxide 28 mmol/L (21-32) 08/10/18 06:00 Anion Gap 9 MMOL/L (8-16) 08/10/18 06:00 BUN 9 mg/dL (7-18) 08/10/18 06:00 Creatinine 0.7 mg/dL (0.55-1.3) 08/10/18 06:00 Creat Clearance w eGFR > 60 (>60) 08/10/18 06:00 Random Glucose 86 mg/dL (74-106) 08/10/18 06:00 Calcium 8.9 mg/dL (8.5-10.1) 08/10/18 06:00 Total Bilirubin 0.3 mg/dL (0.2-1) 08/10/18 06:00 AST 26 U/L (15-37) 08/10/18 06:00 ALT 30 U/L (13-61) 08/10/18 06:00 Alkaline Phosphatase 92 U/L (45-117) 08/10/18 06:00 Total Protein 7.4 g/dl (6.4-8.2) 08/10/18 06:00 Albumin 4.0 g/dl (3.4-5.0) 08/10/18 06:00 Urine Color Colorless 08/10/18 00:30 Urine Appearance Clear 08/10/18 00:30 Urine pH 6.0 (5.0-8.0) 08/10/18 00:30 Ur Specific [place] 1.003 (1.010-1.035) L 08/10/18 00:30 Urine Protein Negative (NEGATIVE) 08/10/18 00:30 Urine Glucose (UA) Negative (NEGATIVE) 08/10/18 00:30 Urine Ketones Negative (NEGATIVE) 08/10/18 00:30 Urine Blood Negative (NEGATIVE) 08/10/18 00:30 Urine Nitrite Negative (NEGATIVE) 08/10/18 00:30 Urine Bilirubin Negative (<2.0 mg/dL) 08/10/18 00:30 Urine Urobilinogen Negative mg/dL (0.2-1.0) 08/10/18 00:30 Ur Leukocyte Esterase Negative (NEGATIVE) 08/10/18 00:30 RPR Titer Nonreactive (NONREACTIVE) 08/10/18 06:00 lab noted Assessment: 08/12/18 14:56 mild withdrawal sx Plan: medically supervised detox
[2018-08-12] MEDS: chlordiazePOXIDE HCL 10 MG CAPSULE PO SCH (22:23)
[2018-08-12] MEDS: THIAMINE HCL 100 MG TABLET (FP) PO SCH (22:23)
[2018-08-13] MEDS: chlordiazePOXIDE HCL 10 MG CAPSULE PO SCH (06:11)
--- NOTE | 2018-08-13 08:47 | DS ---
[facility] Detox Discharge Summary Admission Date: 08/09/18 Discharge Date: 08/13/18 - History Present History: Alcohol Dependence Additional Comments: 62 years old male admitted on 08/09/18 for alcohol withdrawal sx completed alcohol detox regimen tolerated well denies alcohol withdrawal sx alert oriented x 3 no acute distress aftercare [facility] - Physical Exam Results Vital Signs: Vital Signs Temperature 97.9 F 08/13/18 06:00 Pulse Rate 73 08/13/18 06:00 Respiratory Rate 16 08/13/18 06:00 Blood Pressure 131/64 08/13/18 06:00 O2 Sat by Pulse Oximetry (%) Pertinent Admission Physical Exam Findings: alcohol withdrawal sx Vital Signs Temperature 98.6 F 08/13/18 09:25 Pulse Rate 92 H 08/13/18 09:25 Respiratory Rate 16 08/13/18 09:25 Blood Pressure 123/78 08/13/18 09:25 O2 Sat by Pulse Oximetry (%) Laboratory Last Values WBC 8.5 K/mm3 (4.0-10.0) 08/10/18 06:00 RBC 4.56 M/mm3 (4.00-5.60) 08/10/18 06:00 Hgb 14.7 GM/dL (11.7-16.9) 08/10/18 06:00 Hct 44.9 % (35.4-49) 08/10/18 06:00 MCV 98.4 fl (80-96) H 08/10/18 06:00 MCH 32.3 pg (25.7-33.7) 08/10/18 06:00 MCHC 32.8 g/dl (32.0-35.9) 08/10/18 06:00 RDW 14.3 % (11.9-15.9) 08/10/18 06:00 Plt Count 282 K/MM3 (134-434) 08/10/18 06:00 MPV 10.2 fl (7.5-11.1) 08/10/18 06:00 Sodium 141 mmol/L (136-145) 08/10/18 06:00 Potassium 4.6 mmol/L (3.5-5.1) 08/10/18 06:00 Chloride 104 mmol/L (98-107) 08/10/18 06:00 Carbon Dioxide 28 mmol/L (21-32) 08/10/18 06:00 Anion Gap 9 MMOL/L (8-16) 08/10/18 06:00 BUN 9 mg/dL (7-18) 08/10/18 06:00 Creatinine 0.7 mg/dL (0.55-1.3) 08/10/18 06:00 Creat Clearance w eGFR > 60 (>60) 08/10/18 06:00 Random Glucose 86 mg/dL (74-106) 08/10/18 06:00 Calcium 8.9 mg/dL (8.5-10.1) 08/10/18 06:00 Total Bilirubin 0.3 mg/dL (0.2-1) 08/10/18 06:00 AST 26 U/L (15-37) 08/10/18 06:00 ALT 30 U/L (13-61) 08/10/18 06:00 Alkaline Phosphatase 92 U/L (45-117) 08/10/18 06:00 Total Protein 7.4 g/dl (6.4-8.2) 08/10/18 06:00 Albumin 4.0 g/dl (3.4-5.0) 08/10/18 06:00 Urine Color Colorless 08/10/18 00:30 Urine Appearance Clear 08/10/18 00:30 Urine pH 6.0 (5.0-8.0) 08/10/18 00:30 Ur Specific [place] 1.003 (1.010-1.035) L 08/10/18 00:30 Urine Protein Negative (NEGATIVE) 08/10/18 00:30 Urine Glucose (UA) Negative (NEGATIVE) 08/10/18 00:30 Urine Ketones Negative (NEGATIVE) 08/10/18 00:30 Urine Blood Negative (NEGATIVE) 08/10/18 00:30 Urine Nitrite Negative (NEGATIVE) 08/10/18 00:30 Urine Bilirubin Negative (<2.0 mg/dL) 08/10/18 00:30 Urine Urobilinogen Negative mg/dL (0.2-1.0) 08/10/18 00:30 Ur Leukocyte Esterase Negative (NEGATIVE) 08/10/18 00:30 RPR Titer Nonreactive (NONREACTIVE) 08/10/18 06:00 lab noted - Treatment Hospital Course: Detox Protocol Followed, Detoxed Safely, Responded well, Discharged Condition Good, Rehab Referral Accepted Patient has Accepted a Rehab Referral to: [facility] - Medication Discharge Medications: Ambulatory Orders Tamsulosin HCl [Flomax -] 0.4 mg PO DAILY #30 cap.er.[id number] 08/12/18 - Diagnosis (1) Alcohol dependence with uncomplicated withdrawal Current Visit: Yes Status: Acute (2) Nicotine dependence Current Visit: Yes Status: Acute Qualifiers: Nicotine product type: cigarettes Substance use status: in withdrawal Qualified Code(s): F17.213 - Nicotine dependence, cigarettes, with withdrawal (3) BPH (benign prostatic hyperplasia) Current Visit: Yes Status: Chronic Qualifiers: Lower urinary tract symptom presence: unspecified whether lower urinary tract symptoms present Qualified Code(s): N40.0 - Benign prostatic hyperplasia without lower urinary tract symptoms - AMA Did Patient Leave Against Medical Advice: No
[2018-08-13 09:26] VITALS: BP 123/78; PULSE 92; TEMP 98.6
== END 2018-08-13 09:45 | disposition home or self-care (01) | DRG 775 ==
LOC: YASAS 11:46 → Y6N 17:01
PROC: HZ2ZZZZ Detoxification Services for Substance Abuse Treatment (ICD-10-PCS; principal; 2018-08-09)
DX: F10.230 Alcohol dependence with withdrawal, uncomplicated (principal); F12.10 Cannabis abuse, uncomplicated; F17.213 Nicotine dependence, cigarettes, with withdrawal; N40.0 Benign prostatic hyperplasia without lower urinary tract symptoms; Z87.898 Personal history of other specified conditions
CPT/HCPCS: 36415; 71045-TC-FY; 80053; 81003; 85027; 86593

== ENCOUNTER 2018-09-25 12:36 | Inpatient (IN) | payer OTHER ==
[2018-09-25 13:40] VITALS: BMI 18.8
--- NOTE | 2018-09-25 14:18 | HP ---
CIWA Score Nausea/Vomitin-Mild Nausea/No Vomiting Muscle Tremors: 4-Moderate,w/Arms Extend Anxiety: 0-No Anxiety, at Ease Agitation: 1-Slight > Activity Paroxysmal Sweats: 2 Orientation: 2-Disoriented Date<2 days Tacttile Disturbances: 0-None Auditory Disturbances: 0-None Visual Disturbances: 0-None Headache: 0-None Present CIWA-Ar Total Score: 10 - Admission Criteria OASAS Guidelines: Admission for Medically Managed Detox: Requires at least one of the followin. CIWA greater than 12 2. Seizures within the past 24 hours 3. Delirium tremens within the past 24 hours 4. Hallucinations within the past 24 hours 5. Acute intervention needed for co occurring medical disorder 6. Acute intervention needed for co occurring psychiatric disorder 7. Severe withdrawal that cannot be handled at a lower level of care (continued vomiting, continued diarrhea, abnormal vital signs) requiring intravenous medication and/or fluids 8. Admission ROS BHS - HPI Allergies/Adverse Reactions: Allergies Allergy/AdvReac Type Severity Reaction Status Date / Time No Known Allergies Allergy Verified 08/09/18 15:40 History of Present Illness: patient here requesting detox from etoh use , reports 2 pints/day x from 9 am , reports use x 10 years , prior detox episodes , most recently 3 mo ago at this facility , latest use 1/2 hr ago reportedly , current SHERICE 0.343 . Reports longest sobriety x 3 mo. First age of use 25 . cannabis - denies utox + THC tobacco : 1 ppd since age 23 , requesting nrt w/patch pmhx : bph Pshx : denies psych : denies meds :mvi lives alone Exam Limitations: Intoxication - Ebola screening Have you traveled outside of the country in the last 21 days: No Have you had contact with anyone from an Ebola affected area: No Have you been sick,other than usual withdrawal symptoms: No Do you have a fever: No - Review of Systems Constitutional: See HPI EENT: reports: Other (reading glasses , upper and lower dentures) Cardiac: reports: No Symptoms Reported GI: reports: No Symptoms Reported : reports: No Symptoms Reported Musculoskeletal: reports: No Symptoms Reported Integumentary: reports: No Symptoms Reported Neuro: reports: No Symptoms reported Psychiatric: reports: Anxious, Disorientated Patient History - Patient Medical History Hx Anemia: No Hx Asthma: No Hx Chronic Obstructive Pulmonary Disease (COPD): No Hx Cancer: No Hx Cardiac Disorders: No Hx Congestive Heart Failure: No Hx Hypertension: No Hx Hypercholesterolemia: Yes (no medciation) Hx Pacemaker: No HX Cerebrovascular Accident: No Hx Seizures: No Hx Dementia: No Hx Diabetes: No Hx Gastrointestinal Disorders: No Hx Liver Disease: No Hx Genitourinary Disorders: No Hx Sexually Transmitted Disorders: No Hx Renal Disease (ESRD): No Hx Thyroid Disease: No Hx Human Immunodeficiency Virus (HIV): No (in 2013 negative) Hx Hepatitis C: No Hx Depression: No Hx Suicide Attempt: No Hx Bipolar Disorder: No Hx Schizophrenia: No - Patient Surgical History Past Surgical History: No Hx Neurologic Surgery: No Hx Cataract Extraction: No Hx Cardiac Surgery: No Hx Lung Surgery: No Hx Breast Surgery: No Hx Breast Biopsy: No Hx Abdominal Surgery: No Hx Appendectomy: No Hx Cholecystectomy: No Hx Genitourinary Surgery: No Hx Section: No Hx Orthopedic Surgery: No Hx Hysterectomy: No Anesthesia Reaction: No - PPD History Date: 10/06/12 Results: CXR(-)08/14/17 - Smoking Cessation Smoking history: Current every day smoker Have you smoked in the past 12 months: Yes Aproximately how many cigarettes per day: 20 Cigars Per Day: 0 Hx Chewing Tobacco Use: No Initiated information on smoking cessation: No Family Disease History - Family Disease History Family Disease History: Other: Father (alcoholism), Mother (alcoholism), Brother (addiction, alcoholism) Admission Physical Exam [facility] - Vital Signs Vital Signs: Vital Signs - 24 hr 09/25/18 13:38 Temperature 96.2 F L Pulse Rate 86 Respiratory 20 Rate Blood Pressure 119/73 - Physical General Appearance: Yes: Disheveled, Moderate Distress, Alcohol on Breath, Intoxicated, Tremorous, Irritable, Anxious HEENTM: Yes: Hearing grossly Normal, Normocephalic, Normal Voice Respiratory: Yes: Chest Non-Tender, Lungs Clear, Normal Breath Sounds Neck: Yes: No masses,lesions,Nodules, Trachea in good position Breast: Yes: Breast Exam Deferred Cardiology: Yes: Regular Rhythm, Regular Rate, S1, S2, Tachycardia Abdominal: Yes: Normal Bowel Sounds, Non Tender, Soft Genitourinary: Yes: Within Normal Limits Back: Yes: Normal Inspection Musculoskeletal: Yes: full range of Motion, Other (staggering gait) Extremities: Yes: Normal Capillary Refill, Normal Inspection, Tremors Neurological: Yes: Depressed Affect Integumentary: Yes: Normal Color, Dry, Warm - Diagnostic (1) Alcohol dependence with uncomplicated withdrawal Current Visit: No Status: Acute (2) Nicotine dependence Current Visit: No Status: Chronic Qualifiers: Nicotine product type: cigarettes Substance use status: in withdrawal Qualified Code(s): F17.213 - Nicotine dependence, cigarettes, with withdrawal (3) BPH (benign prostatic hyperplasia) Current Visit: No Status: Chronic Qualifiers: Lower urinary tract symptom presence: unspecified whether lower urinary tract symptoms present Qualified Code(s): N40.0 - Benign prostatic hyperplasia without lower urinary tract symptoms BHS Breath Alcohol Content Breath Alcohol Content: 0.343 Urine Drug Screen - Results Drug Screen Negative: No Urine Drug Screen Results: THC-Marijuana
[2018-09-25] MEDS ORDERED: ACETAMINOPHEN 325 MG TABLET (FP) PO PRN (15:55)
[2018-09-25] MEDS ORDERED: chlordiazePOXIDE HCL 25 MG CAPSULE PO PRN (15:55)
[2018-09-25] MEDS ORDERED: guaiFENesin/D-METHORPHAN HB 10 ML UNIT-DOSE CUPS PO PRN (15:55)
[2018-09-25] MEDS ORDERED: MAG HYDROX/AL HYDROX/SIMETH 30 ML UNIT-DOSE CUP PO PRN (15:55)
[2018-09-25] MEDS ORDERED: MENTHOL/PHENOL 1 EACH UD MM PRN (15:55)
[2018-09-25] MEDS ORDERED: IBUPROFEN 400 MG TABLET (FP) PO PRN (15:55)
[2018-09-25] MEDS ORDERED: P-EPHED 60MG/TRIPROLIDI 2.5MG TABLET PO PRN (15:55)
[2018-09-25] MEDS ORDERED: MAGNESIUM HYDROX 2400MG/30ML ORAL SUSPENSION 30 ML CUP PO PRN (15:55)
[2018-09-25] MEDS ORDERED: MAGNESIUM CITRATE 300 ML BOTTLE PO PRN (15:55)
[2018-09-25] MEDS: chlordiazePOXIDE HCL 25 MG CAPSULE PO SCH (22:19)
[2018-09-25] MEDS: THIAMINE HCL 100 MG TABLET (FP) PO SCH (22:19)
[2018-09-25 23:19] LABS: URINE APPEARANCE CLEAR; URINE BILIRUBIN NEGATIVE (<2.0 mg/dL); URINE COLOR COLORLESS; URINE GLUCOSE (UA) NEGATIVE (NEGATIVE); URINE KETONE NEGATIVE (NEGATIVE); URINE LEUK ESTERASE NEGATIVE (NEGATIVE); URINE NITRITE NEGATIVE (NEGATIVE); URINE PROTEIN NEGATIVE (NEGATIVE); URINE UROBILINOGEN NEGATIVE mg/dL (0.2-1.0)
[2018-09-26] MEDS: chlordiazePOXIDE HCL 25 MG CAPSULE PO SCH ×4 (05:13→22:28)
[2018-09-26] MEDS: PRENATAL VITAMINS W/ FOLIC ACID TABLET (FP) PO SCH (10:15)
[2018-09-26] MEDS: NICOTINE 14 MG/24 HOURS TOPICAL PATCH TD SCH (10:15)
[2018-09-26 10:45] LABS: ALBUMIN 3.5 g/dl (3.4-5.0); ALK PHOS 83 U/L (45-117); ANION GAP 6 MMOL/L (8-16); BILIRUBIN,TOTAL 0.3 mg/dL (0.2-1); BLOOD UREA NITROGEN 14 mg/dL (7-18); CALCIUM 8.2 mg/dL (8.5-10.1); CHLORIDE 106 mmol/L (98-107); CO2 30 mmol/L (21-32); CREATININE 0.7 mg/dL (0.55-1.3); GLUCOSE,RANDOM 79 mg/dL (74-106); POTASSIUM 4.6 mmol/L (3.5-5.1); SGOT/AST 34 U/L (15-37); SGPT/ALT 30 U/L (13-61); SODIUM 141 mmol/L (136-145); TOT PROT 6.4 g/dl (6.4-8.2)
[2018-09-26 10:49] LABS: HEMOGLOBIN 14.4 GM/dL (11.7-16.9); MCH 31.9 pg (25.7-33.7); MCHC 32.7 g/dl (32.0-35.9); MEAN CELL VOLUME 97.5 fl (80-96); PLATELET COUNT 273 K/MM3 (134-434); RBC 4.51 M/mm3 (4.00-5.60); RDW 13.5 % (11.9-15.9); WHITE BLOOD COUNT 6.8 K/mm3 (4.0-10.0)
--- NOTE | 2018-09-26 12:14 | PN ---
S CIWA - CIWA Score Nausea/Vomitin-Mild Nausea/No Vomiting Muscle Tremors: 2 Anxiety: 3 Agitation: 3 Paroxysmal Sweats: 2 Orientation: 0-Oriented Tacttile Disturbances: 0-None Auditory Disturbances: 0-None Visual Disturbances: 0-None Headache: 0-None Present CIWA-Ar Total Score: 11 BHS Progress Note (SOAP) Subjective: PATIENT C/O ANXIETY, SHAKES, SWEATING, MILD NAUSEA. Objective: 09/26/18 12:13 Laboratory Tests 09/25/18 09/26/18 09/26/18 16:27 07:30 07:30 WBC 6.8 RBC 4.51 Hgb 14.4 Hct 44.0 MCV 97.5 H MCH 31.9 MCHC 32.7 RDW 13.5 Plt Count 273 MPV 10.0 Sodium 141 Potassium 4.6 Chloride 106 Carbon Dioxide 30 Anion Gap 6 L BUN 14 Creatinine 0.7 Creat Clearance w eGFR > 60 Random Glucose 79 Calcium 8.2 L Total Bilirubin 0.3 AST 34 ALT 30 Alkaline Phosphatase 83 Total Protein 6.4 Albumin 3.5 Urine Color Colorless Urine Appearance Clear Urine pH 6.0 Ur Specific [place] 1.003 L Urine Protein Negative Urine Glucose (UA) Negative Urine Ketones Negative Urine Blood Negative Urine Nitrite Negative Urine Bilirubin Negative Urine Urobilinogen Negative Ur Leukocyte Esterase Negative RPR Titer 09/26/18 07:30 WBC RBC Hgb Hct MCV MCH MCHC RDW Plt Count MPV Sodium Potassium Chloride Carbon Dioxide Anion Gap BUN Creatinine Creat Clearance w eGFR Random Glucose Calcium Total Bilirubin AST ALT Alkaline Phosphatase Total Protein Albumin Urine Color Urine Appearance Urine pH Ur Specific [place] Urine Protein Urine Glucose (UA) Urine Ketones Urine Blood Urine Nitrite Urine Bilirubin Urine Urobilinogen Ur Leukocyte Esterase RPR Titer Nonreactive Vital Signs Temperature 97.7 F 09/26/18 09:31 Pulse Rate 86 09/26/18 10:30 Respiratory Rate 20 09/26/18 10:30 Blood Pressure 97/58 L 09/26/18 09:31 O2 Sat by Pulse Oximetry (%) PE: ALERT AND ORIENTED X 3 SKIN WARM, MILD MOISTURE TO TRUNK AREA CAR S1S2 RESP CTA BL EXT FULL ROM, +TREMORS AMB AB KIM ANXIOUS Assessment: 09/26/18 12:14 WITHDRAWAL SX Plan: CONTINUE DETOX ENCOURAGE ORAL FLUIDS CONTINUE TO MONITOR CLINICALLY
[2018-09-26] MEDS: THIAMINE HCL 100 MG TABLET (FP) PO SCH (22:28)
[2018-09-26] MEDS: MELATONIN 5 MG TABLETS PO PRN (22:29)
[2018-09-27] MEDS: chlordiazePOXIDE HCL 25 MG CAPSULE PO SCH ×3 (05:22→17:31)
[2018-09-27] MEDS: PRENATAL VITAMINS W/ FOLIC ACID TABLET (FP) PO SCH (10:24)
[2018-09-27] MEDS: NICOTINE 14 MG/24 HOURS TOPICAL PATCH TD SCH (10:24)
--- NOTE | 2018-09-27 10:58 | PN ---
S CIWA - CIWA Score Nausea/Vomitin Muscle Tremors: 1-None Visible, but [place] Anxiety: 0-No Anxiety, at Ease Agitation: 0-Normal Activity Paroxysmal Sweats: 2 Orientation: 1-Uncertain about Date Tacttile Disturbances: 0-None Auditory Disturbances: 0-None Visual Disturbances: 0-None Headache: 2-Mild CIWA-Ar Total Score: 8 BHS Progress Note (SOAP) Subjective: PATIENT C/O SLEEP DISTURBANCE, HEADACHE, NIGHT SWEATS AND DIARRHEA AT TIMES. Objective: 09/27/18 10:57 Vital Signs Temperature 98.9 F 09/27/18 09:28 Pulse Rate 88 09/27/18 09:28 Respiratory Rate 18 09/27/18 09:28 Blood Pressure 128/79 09/27/18 09:28 O2 Sat by Pulse Oximetry (%) Laboratory Tests 09/25/18 09/26/18 09/26/18 16:27 07:30 07:30 WBC 6.8 RBC 4.51 Hgb 14.4 Hct 44.0 MCV 97.5 H MCH 31.9 MCHC 32.7 RDW 13.5 Plt Count 273 MPV 10.0 Sodium 141 Potassium 4.6 Chloride 106 Carbon Dioxide 30 Anion Gap 6 L BUN 14 Creatinine 0.7 Creat Clearance w eGFR > 60 Random Glucose 79 Calcium 8.2 L Total Bilirubin 0.3 AST 34 ALT 30 Alkaline Phosphatase 83 Total Protein 6.4 Albumin 3.5 Urine Color Colorless Urine Appearance Clear Urine pH 6.0 Ur Specific [place] 1.003 L Urine Protein Negative Urine Glucose (UA) Negative Urine Ketones Negative Urine Blood Negative Urine Nitrite Negative Urine Bilirubin Negative Urine Urobilinogen Negative Ur Leukocyte Esterase Negative RPR Titer 09/26/18 07:30 WBC RBC Hgb Hct MCV MCH MCHC RDW Plt Count MPV Sodium Potassium Chloride Carbon Dioxide Anion Gap BUN Creatinine Creat Clearance w eGFR Random Glucose Calcium Total Bilirubin AST ALT Alkaline Phosphatase Total Protein Albumin Urine Color Urine Appearance Urine pH Ur Specific [place] Urine Protein Urine Glucose (UA) Urine Ketones Urine Blood Urine Nitrite Urine Bilirubin Urine Urobilinogen Ur Leukocyte Esterase RPR Titer Nonreactive PE: ALERT AND ORIENTED X 3 SKIN WARM AND DRY EXT FULL ROM, NO EDEMA, MILD TREMORS AMB AD KIM Assessment: 09/27/18 10:58 WITHDRAWAL SX Plan: CONTINUE DETOX ENCOURAGE ORAL FLUIDS CONTINUE TO MONITOR CLINICALLY
[2018-09-27] MEDS: chlordiazePOXIDE 5 MG CAPSULE PO SCH (22:18)
[2018-09-27] MEDS: THIAMINE HCL 100 MG TABLET (FP) PO SCH (22:18)
[2018-09-27] MEDS: MELATONIN 5 MG TABLETS PO PRN (22:19)
[2018-09-28] MEDS: chlordiazePOXIDE 5 MG CAPSULE PO SCH ×3 (05:23→17:19)
[2018-09-28] MEDS: PRENATAL VITAMINS W/ FOLIC ACID TABLET (FP) PO SCH (10:41)
[2018-09-28] MEDS: NICOTINE 14 MG/24 HOURS TOPICAL PATCH TD SCH (10:42)
--- NOTE | 2018-09-28 11:49 | PN ---
[facility] Progress Note Note: PATIENT CONTINUES DETOX REGIMEN. PATIENT STATES HE FEELS BETTER, C/O MILD SHAKES. Vital Signs Temperature 97.5 F L 09/28/18 10:08 Pulse Rate 82 09/28/18 10:08 Respiratory Rate 16 09/28/18 10:08 Blood Pressure 114/77 09/28/18 10:08 O2 Sat by Pulse Oximetry (%) Laboratory Tests 09/25/18 09/26/18 09/26/18 16:27 07:30 07:30 WBC 6.8 RBC 4.51 Hgb 14.4 Hct 44.0 MCV 97.5 H MCH 31.9 MCHC 32.7 RDW 13.5 Plt Count 273 MPV 10.0 Sodium 141 Potassium 4.6 Chloride 106 Carbon Dioxide 30 Anion Gap 6 L BUN 14 Creatinine 0.7 Creat Clearance w eGFR > 60 Random Glucose 79 Calcium 8.2 L Total Bilirubin 0.3 AST 34 ALT 30 Alkaline Phosphatase 83 Total Protein 6.4 Albumin 3.5 Urine Color Colorless Urine Appearance Clear Urine pH 6.0 Ur Specific [place] 1.003 L Urine Protein Negative Urine Glucose (UA) Negative Urine Ketones Negative Urine Blood Negative Urine Nitrite Negative Urine Bilirubin Negative Urine Urobilinogen Negative Ur Leukocyte Esterase Negative RPR Titer 09/26/18 07:30 WBC RBC Hgb Hct MCV MCH MCHC RDW Plt Count MPV Sodium Potassium Chloride Carbon Dioxide Anion Gap BUN Creatinine Creat Clearance w eGFR Random Glucose Calcium Total Bilirubin AST ALT Alkaline Phosphatase Total Protein Albumin Urine Color Urine Appearance Urine pH Ur Specific [place] Urine Protein Urine Glucose (UA) Urine Ketones Urine Blood Urine Nitrite Urine Bilirubin Urine Urobilinogen Ur Leukocyte Esterase RPR Titer Nonreactive PE: ALERT AND ORIENTED X 3 SKIN WARM AND DRY EXT FULL ROM, MILD TREMORS FELT AMB AD KIM A/P: WITHDRAWAL SX CONTINUE DETOX ENCOURAGE ORAL FLUIDS CONTINUE TO MONITOR FOR D/C IN AM
[2018-09-28] MEDS: chlordiazePOXIDE HCL 10 MG CAPSULE PO SCH (22:17)
[2018-09-28] MEDS: THIAMINE HCL 100 MG TABLET (FP) PO SCH (22:17)
[2018-09-28] MEDS: MELATONIN 5 MG TABLETS PO PRN (22:18)
[2018-09-29 06:30] VITALS: BP 106/67; PULSE 70; TEMP 97
[2018-09-29] MEDS: chlordiazePOXIDE HCL 10 MG CAPSULE PO SCH (06:30)
--- NOTE | 2018-09-29 14:28 | PN ---
[facility] Progress Note (SOAP) Subjective: DETOX COMPLETED. ALERT O X 3. PT REPORTS HE IS GOING HOME TO FOLLOW UP WITH AA MEETINGS. Objective: 09/29/18 14:28 Vital Signs - 24 hr 09/28/18 09/28/18 09/29/18 17:52 21:56 00:30 Temperature 97.5 F L 97.9 F Pulse Rate 86 93 H Respiratory 18 20 18 Rate Blood Pressure 104/70 116/78 09/29/18 09/29/18 09/29/18 03:30 06:29 06:30 Temperature 97.0 F L Pulse Rate 70 Respiratory 18 18 18 Rate Blood Pressure 106/67 Assessment: 09/29/18 14:28 NAD Plan: D/C PT TODAY
--- NOTE | 2018-09-29 14:31 | DS ---
[facility] Detox Discharge Summary Admission Date: 09/25/18 Discharge Date: 09/29/18 - History Present History: Alcohol Dependence Additional Comments: PT WILL FOLLOW UP WITH HIS [id number] NOT REMEMBER HIS DOCTOR'S NAME BUT HAS ONE) AT [address] [place] [address]. Pertinent Past History: BPH - Physical Exam Results Vital Signs: Vital Signs Temperature 97.0 F L 09/29/18 06:29 Pulse Rate 70 09/29/18 06:29 Respiratory Rate 18 09/29/18 06:30 Blood Pressure 106/67 09/29/18 06:29 O2 Sat by Pulse Oximetry (%) Pertinent Admission Physical Exam Findings: WITHDRAWAL SX Laboratory Tests 09/25/18 09/26/18 09/26/18 16:27 07:30 07:30 WBC 6.8 RBC 4.51 Hgb 14.4 Hct 44.0 MCV 97.5 H MCH 31.9 MCHC 32.7 RDW 13.5 Plt Count 273 MPV 10.0 Sodium 141 Potassium 4.6 Chloride 106 Carbon Dioxide 30 Anion Gap 6 L BUN 14 Creatinine 0.7 Creat Clearance w eGFR > 60 Random Glucose 79 Calcium 8.2 L Total Bilirubin 0.3 AST 34 ALT 30 Alkaline Phosphatase 83 Total Protein 6.4 Albumin 3.5 Urine Color Colorless Urine Appearance Clear Urine pH 6.0 Ur Specific [place] 1.003 L Urine Protein Negative Urine Glucose (UA) Negative Urine Ketones Negative Urine Blood Negative Urine Nitrite Negative Urine Bilirubin Negative Urine Urobilinogen Negative Ur Leukocyte Esterase Negative RPR Titer 09/26/18 07:30 WBC RBC Hgb Hct MCV MCH MCHC RDW Plt Count MPV Sodium Potassium Chloride Carbon Dioxide Anion Gap BUN Creatinine Creat Clearance w eGFR Random Glucose Calcium Total Bilirubin AST ALT Alkaline Phosphatase Total Protein Albumin Urine Color Urine Appearance Urine pH Ur Specific [place] Urine Protein Urine Glucose (UA) Urine Ketones Urine Blood Urine Nitrite Urine Bilirubin Urine Urobilinogen Ur Leukocyte Esterase RPR Titer Nonreactive - Treatment Hospital Course: Detox Protocol Followed, Detoxed Safely, Responded well, Discharged Condition Good - Medication Discharge Medications: Ambulatory Orders Tamsulosin HCl [Flomax -] 0.4 mg PO DAILY #30 cap.er.24h 08/12/18 - AMA Did Patient Leave Against Medical Advice: No
== END 2018-09-29 09:08 | disposition home or self-care (01) | DRG 775 ==
LOC: YASAS 12:36 → Y3N 16:38
PROC: HZ2ZZZZ Detoxification Services for Substance Abuse Treatment (ICD-10-PCS; principal; 2018-09-25)
DX: F10.230 Alcohol dependence with withdrawal, uncomplicated (principal); F12.20 Cannabis dependence, uncomplicated; F17.213 Nicotine dependence, cigarettes, with withdrawal; N40.0 Benign prostatic hyperplasia without lower urinary tract symptoms
CPT/HCPCS: 36415; 80053; 81003; 85027; 86593

== ENCOUNTER 2018-11-20 11:29 | Inpatient (IN) | payer OTHER ==
[2018-11-20 11:52] VITALS: BMI 19.3
--- NOTE | 2018-11-20 13:03 | HP ---
CIWA Score Nausea/Vomitin-No Nausea/No Vomiting Muscle Tremors: 2 Anxiety: 5 Agitation: 1-Slight > Activity Paroxysmal Sweats: No Perspiration Orientation: 1-Uncertain about Date Tacttile Disturbances: 0-None Auditory Disturbances: 0-None Visual Disturbances: 0-None Headache: 0-None Present CIWA-Ar Total Score: 9 - Admission Criteria OASAS Guidelines: Admission for Medically Managed Detox: Requires at least one of the followin. CIWA greater than 12 2. Seizures within the past 24 hours 3. Delirium tremens within the past 24 hours 4. Hallucinations within the past 24 hours 5. Acute intervention needed for co occurring medical disorder 6. Acute intervention needed for co occurring psychiatric disorder 7. Severe withdrawal that cannot be handled at a lower level of care (continued vomiting, continued diarrhea, abnormal vital signs) requiring intravenous medication and/or fluids 8. Admission ROS S - HPI Allergies/Adverse Reactions: Allergies Allergy/AdvReac Type Severity Reaction Status Date / Time No Known Allergies Allergy Verified 11/20/18 12:33 History of Present Illness: patient is currently intoxicated , reports 2 pints/ day x 20 years , latest use this morning , reports tremors if not drinking , denies seizures , blackouts , denies falls while intoxicated . Previous detox at this facility several months ago , current symptoms as above, SHERICE 0.113 . tobacco : 10-12 cigs/day cannabis : denies PMHX : hld, PSHx : denies PSYch : denies SHx : lives w/ friend Exam Limitations: Clinical Condition, Intoxication - Ebola screening Have you traveled outside of the country in the last 21 days: No Have you had contact with anyone from an Ebola affected area: No Have you been sick,other than usual withdrawal symptoms: No Do you have a fever: No - Review of Systems Constitutional: See HPI EENT: reports: Other (reading glasses , dentures upper) Respiratory: reports: No Symptoms reported Cardiac: reports: No Symptoms Reported GI: reports: No Symptoms Reported : reports: No Symptoms Reported Musculoskeletal: reports: No Symptoms Reported Integumentary: reports: No Symptoms Reported Neuro: reports: Unsteady Gait Endocrine: reports: No Symptoms Reported Psychiatric: reports: Orientated x3, Anxious Patient History - Patient Medical History Hx Anemia: No Hx Asthma: No Hx Chronic Obstructive Pulmonary Disease (COPD): No Hx Cancer: No Hx Cardiac Disorders: No Hx Congestive Heart Failure: No Hx Hypertension: No Hx Hypercholesterolemia: Yes (no medciation) Hx Pacemaker: No HX Cerebrovascular Accident: No Hx Seizures: No Hx Dementia: No Hx Diabetes: No Hx Gastrointestinal Disorders: No Hx Liver Disease: No Hx Genitourinary Disorders: No Hx Sexually Transmitted Disorders: No Hx Renal Disease (ESRD): No Hx Thyroid Disease: No Hx Human Immunodeficiency Virus (HIV): No (in 2012 negative) Hx Hepatitis C: No Hx Depression: No Hx Suicide Attempt: No Hx Bipolar Disorder: No Hx Schizophrenia: No - Patient Surgical History Past Surgical History: No Hx Neurologic Surgery: No Hx Cataract Extraction: No Hx Cardiac Surgery: No Hx Lung Surgery: No Hx Breast Surgery: No Hx Breast Biopsy: No Hx Abdominal Surgery: No Hx Appendectomy: No Hx Cholecystectomy: No Hx Genitourinary Surgery: No Hx Section: No Hx Orthopedic Surgery: No Hx Hysterectomy: No Anesthesia Reaction: No - PPD History Previous Implant?: Yes Documented Results: Positive w/proof Implanted On Prior [facility] Admission?: Yes Date: 10/06/12 Results: 15 mm - Smoking Cessation Smoking history: Current every day smoker Have you smoked in the past 12 months: Yes Aproximately how many cigarettes per day: 10 Cigars Per Day: 0 Hx Chewing Tobacco Use: No Initiated information on smoking cessation: No - Substances Abused Alcohol-beer/vodka Route: Oral Frequency: Daily Amount used: 1-6 pk./3-4 pts. Age of first use: 20 Date of Last Use: 11/20/18 Family Disease History - Family Disease History Family Disease History: Other: Father (alcoholism), Mother (alcoholism), Brother (addiction, alcoholism) Admission Physical Exam S - Vital Signs Vital Signs: Vital Signs - 24 hr 11/20/18 11:50 Temperature 97.1 F L Pulse Rate 105 H Respiratory 18 Rate Blood Pressure 109/83 - Physical General Appearance: Yes: Disheveled, Mild Distress, Alcohol on Breath, Intoxicated, Anxious HEENTM: Yes: EOMI, Normocephalic, Normal Voice, Muffled/Hoarse Voice, Other ( upper dentures) Respiratory: Yes: Chest Non-Tender, Lungs Clear, Normal Breath Sounds Neck: Yes: No masses,lesions,Nodules, Trachea in good position Breast: Yes: Breast Exam Deferred Cardiology: Yes: Regular Rhythm, Regular Rate, S1, S2, Tachycardia Abdominal: Yes: Normal Bowel Sounds, Soft Back: Yes: Normal Inspection Musculoskeletal: Yes: Other (slightly staggering gait) Extremities: Yes: Non-Tender, Tremors Neurological: Yes: Fully Oriented, Alert, Motor Strength 5/5, Normal Mood/Affect Integumentary: Yes: Normal Color - Diagnostic (1) Alcohol intoxication Current Visit: Yes Status: Acute Qualifiers: Complication of substance-induced condition: uncomplicated Qualified Code(s ): F10.920 - Alcohol use, unspecified with intoxication, uncomplicated (2) Nicotine dependence Current Visit: No Status: Chronic Qualifiers: Nicotine product type: cigarettes Substance use status: in withdrawal Qualified Code(s): F17.213 - Nicotine dependence, cigarettes, with withdrawal BHS Breath Alcohol Content Breath Alcohol Content: 0.113 Urine Drug Screen - Results Drug Screen Negative: No Urine Drug Screen Results: THC-Marijuana
[2018-11-20] MEDS ORDERED: MAGNESIUM CITRATE 300 ML BOTTLE PO PRN (13:06)
[2018-11-20] MEDS ORDERED: ACETAMINOPHEN 325 MG TABLET (FP) PO PRN (13:06)
[2018-11-20] MEDS ORDERED: chlordiazePOXIDE HCL 25 MG CAPSULE PO PRN (13:06)
[2018-11-20] MEDS ORDERED: P-EPHED 60MG/TRIPROLIDI 2.5MG TABLET PO PRN (13:06)
[2018-11-20] MEDS ORDERED: MAG HYDROX/AL HYDROX/SIMETH 30 ML UNIT-DOSE CUP PO PRN (13:06)
[2018-11-20] MEDS ORDERED: MENTHOL/PHENOL 1 EACH UD MM PRN (13:06)
[2018-11-20] MEDS ORDERED: NICOTINE POLACRILEX 2 MG GUM BUC PRN (13:06)
[2018-11-20] MEDS ORDERED: guaiFENesin/D-METHORPHAN HB 10 ML UNIT-DOSE CUPS PO PRN (13:06)
[2018-11-20] MEDS ORDERED: IBUPROFEN 400 MG TABLET (FP) PO PRN (13:06)
[2018-11-20] MEDS ORDERED: MAGNESIUM HYDROX 2400MG/30ML ORAL SUSPENSION 30 ML CUP PO PRN (13:06)
[2018-11-20] MEDS: chlordiazePOXIDE HCL 25 MG CAPSULE PO SCH ×2 (18:10→22:05)
[2018-11-20] MEDS: THIAMINE HCL 100 MG TABLET (FP) PO SCH (22:04)
[2018-11-21] MEDS: chlordiazePOXIDE HCL 25 MG CAPSULE PO SCH ×2 (06:00→10:05)
[2018-11-21] MEDS: PRENATAL VITAMINS W/ FOLIC ACID TABLET (FP) PO SCH (10:04)
[2018-11-21 10:20] LABS: HEMOGLOBIN 15.9 GM/dL (11.7-16.9); MCH 33.3 pg (25.7-33.7); MCHC 33.9 g/dl (32.0-35.9); MEAN CELL VOLUME 98.5 fl (80-96); MEAN PLT VOLUME 9.8 fl (7.5-11.1); PLATELET COUNT 350 K/MM3 (134-434); RBC 4.78 M/mm3 (4.00-5.60); RDW 14.5 % (11.9-15.9); WHITE BLOOD COUNT 8.7 K/mm3 (4.0-10.0)
[2018-11-21 10:24] LABS: ALBUMIN 4.3 g/dl (3.4-5.0); ALK PHOS 106 U/L (45-117); ANION GAP 10 MMOL/L (8-16); BILIRUBIN,TOTAL 0.4 mg/dL (0.2-1); BLOOD UREA NITROGEN 9 mg/dL (7-18); CALCIUM 9.1 mg/dL (8.5-10.1); CHLORIDE 102 mmol/L (98-107); CO2 29 mmol/L (21-32); CREATININE 0.9 mg/dL (0.55-1.3); GLUCOSE,RANDOM 149 mg/dL (74-106); POTASSIUM 4.2 mmol/L (3.5-5.1); SGOT/AST 38 U/L (15-37); SGPT/ALT 29 U/L (13-61); SODIUM 141 mmol/L (136-145); TOT PROT 7.9 g/dl (6.4-8.2)
--- NOTE | 2018-11-21 11:16 | PN ---
S CIWA - CIWA Score Nausea/Vomitin-No Nausea/No Vomiting Muscle Tremors: 4-Moderate,w/Arms Extend Anxiety: 0-No Anxiety, at Ease Agitation: 0-Normal Activity Paroxysmal Sweats: 3 Orientation: 0-Oriented Tacttile Disturbances: 3-Moderate Itch/Numb/Burn Auditory Disturbances: 0-None Visual Disturbances: 2-Mild Sensitivity Headache: 0-None Present CIWA-Ar Total Score: 12 B[facility] Progress Note (SOAP) Subjective: Sweating, Tremors, Interrupted Sleep. Objective: PATIENT A & O X 3. IN NO ACUTE DISTRESS. 11/21/18 11:14 Vital Signs Temperature 97 F L 11/21/18 09:20 Pulse Rate 60 11/21/18 09:20 Respiratory Rate 20 11/21/18 09:20 Blood Pressure 113/70 11/21/18 09:20 O2 Sat by Pulse Oximetry (%) Laboratory Tests 11/21/18 11/21/18 06:00 06:00 WBC 8.7 RBC 4.78 Hgb 15.9 Hct 47.0 MCV 98.5 H MCH 33.3 MCHC 33.9 RDW 14.5 Plt Count 350 D MPV 9.8 Sodium 141 Potassium 4.2 Chloride 102 Carbon Dioxide 29 Anion Gap 10 BUN 9 Creatinine 0.9 Creat Clearance w eGFR > 60 Random Glucose 149 H Calcium 9.1 Total Bilirubin 0.4 AST 38 H ALT 29 Alkaline Phosphatase 106 Total Protein 7.9 Albumin 4.3 LABS NOTED. Assessment: 11/21/18 11:14 WITHDRAWAL SYMPTOMS. RPR RESULT PENDING. 11/21/18 11:15 Plan: CONTINUE DETOX. INCREASE DAILY PO FLUID INTAKE. ENCOURAGE AMBULATION.
[2018-11-21] MEDS: chlordiazePOXIDE 5 MG CAPSULE PO SCH ×2 (17:15→22:21)
[2018-11-21] MEDS: THIAMINE HCL 100 MG TABLET (FP) PO SCH (22:21)
[2018-11-21] MEDS: MELATONIN 5 MG TABLETS PO PRN (22:21)
[2018-11-22] MEDS: chlordiazePOXIDE 5 MG CAPSULE PO SCH ×2 (05:49→10:03)
[2018-11-22] MEDS: PRENATAL VITAMINS W/ FOLIC ACID TABLET (FP) PO SCH (10:03)
[2018-11-22] MEDS ORDERED: NICOTINE 21 MG/24 HOURS TOPICAL PATCH TD SCH (10:45)
--- NOTE | 2018-11-22 14:20 | PN ---
S CIWA - CIWA Score Nausea/Vomitin-No Nausea/No Vomiting Muscle Tremors: 3 Anxiety: 1-Mildly Anxious Agitation: 0-Normal Activity Paroxysmal Sweats: 3 Orientation: 0-Oriented Tacttile Disturbances: 0-None Auditory Disturbances: 0-None Visual Disturbances: 1-Very Mild Sensitivity Headache: 0-None Present CIWA-Ar Total Score: 8 BHS Progress Note (SOAP) Subjective: Sweating, Tremors. Objective: PATIENT A & O X 2 (UNCERTAIN ABOUT CURRENT DAY / DATE). PATIENT OBSERVED AMBULATING ON UNIT. IN NO ACUTE DISTRESS. 11/22/18 14:18 Vital Signs Temperature 97.9 F 11/22/18 13:39 Pulse Rate 81 11/22/18 13:39 Respiratory Rate 18 11/22/18 13:39 Blood Pressure 116/85 11/22/18 13:39 O2 Sat by Pulse Oximetry (%) Laboratory Tests 11/21/18 11/21/18 11/21/18 06:00 06:00 06:00 WBC 8.7 RBC 4.78 Hgb 15.9 Hct 47.0 MCV 98.5 H MCH 33.3 MCHC 33.9 RDW 14.5 Plt Count 350 D MPV 9.8 Sodium 141 Potassium 4.2 Chloride 102 Carbon Dioxide 29 Anion Gap 10 BUN 9 Creatinine 0.9 Creat Clearance w eGFR > 60 Random Glucose 149 H Calcium 9.1 Total Bilirubin 0.4 AST 38 H ALT 29 Alkaline Phosphatase 106 Total Protein 7.9 Albumin 4.3 RPR Titer Nonreactive LABS NOTED. Assessment: 11/22/18 14:19 WITHDRAWAL SYMPTOMS. Plan: CONTINUE DETOX. PATIENT SCHEDULED FOR D/C TOMORROW.
[2018-11-22] MEDS: chlordiazePOXIDE HCL 10 MG CAPSULE PO SCH ×2 (17:29→22:13)
[2018-11-22] MEDS: MELATONIN 5 MG TABLETS PO PRN (22:13)
[2018-11-22] MEDS: THIAMINE HCL 100 MG TABLET (FP) PO SCH (22:13)
[2018-11-23] MEDS: chlordiazePOXIDE HCL 10 MG CAPSULE PO SCH (05:26)
--- NOTE | 2018-11-23 09:00 | DS ---
[facility] Detox Discharge Summary Admission Date: 11/20/18 Discharge Date: 11/23/18 - History Present History: Alcohol Dependence, Cannabis Dependence - Physical Exam Results Vital Signs: Vital Signs Temperature 98.1 F 11/23/18 06:00 Pulse Rate 73 11/23/18 06:00 Respiratory Rate 16 11/23/18 06:00 Blood Pressure 120/67 11/23/18 06:00 O2 Sat by Pulse Oximetry (%) - Treatment Hospital Course: Detox Protocol Followed, Detoxed Safely, Responded well, Discharged Condition Good, Rehab Referral Accepted - Medication Discharge Medications: Ambulatory Orders Tamsulosin HCl [Flomax -] 0.4 mg PO DAILY #30 cap.er.24h 08/12/18 - Diagnosis (1) Alcohol intoxication Current Visit: Yes Status: Acute Qualifiers: Complication of substance-induced condition: uncomplicated Qualified Code(s ): F10.920 - Alcohol use, unspecified with intoxication, uncomplicated (2) Alcohol dependence with uncomplicated withdrawal Current Visit: Yes Status: Chronic (3) Anxious mood Current Visit: No Status: Acute (4) Cannabis abuse Current Visit: No Status: Acute (5) Dehydration Current Visit: Yes Status: Chronic (6) Depressed affect Current Visit: No Status: Acute (7) Drug-induced mood disorder Current Visit: No Status: Acute (8) Insomnia Current Visit: No Status: Acute Qualifiers: Insomnia type: unspecified Qualified Code(s): G47.00 - Insomnia, unspecified (9) Weight loss Current Visit: No Status: Acute (10) BPH (benign prostatic hyperplasia) Current Visit: No Status: Chronic Qualifiers: Lower urinary tract symptom presence: unspecified whether lower urinary tract symptoms present Qualified Code(s): N40.0 - Benign prostatic hyperplasia without lower urinary tract symptoms (11) Nicotine dependence Current Visit: Yes Status: Chronic Qualifiers: Nicotine product type: cigarettes Substance use status: uncomplicated Qualified Code(s): F17.210 - Nicotine dependence, cigarettes, uncomplicated (12) Syncope Current Visit: No Status: Chronic Qualifiers: Syncope type: unspecified Qualified Code(s): R55 - Syncope and collapse - AMA Did Patient Leave Against Medical Advice: No (out patient rehab/community facility)
[2018-11-23 09:21] VITALS: BP 114/69; PULSE 78; TEMP 97
== END 2018-11-23 09:28 | disposition home or self-care (01) | DRG 897 ==
LOC: YASAS 11:29 → Y6N 13:20
PROVIDERS: ADMIT Neuromusculoskeletal Medicine & OMM; ATTEND Neuromusculoskeletal Medicine & OMM
PROC: HZ2ZZZZ Detoxification Services for Substance Abuse Treatment (ICD-10-PCS; principal; 2018-11-20)
DX: F10.230 Alcohol dependence with withdrawal, uncomplicated (principal); Z68.1 Body mass index [BMI] 19.9 or less, adult; F12.10 Cannabis abuse, uncomplicated; F17.210 Nicotine dependence, cigarettes, uncomplicated; F19.24 Other psychoactive substance dependence with psychoactive substance-induced mood disorder; F41.9 Anxiety disorder, unspecified; G47.00 Insomnia, unspecified; E86.0 Dehydration; R45.89 Other symptoms and signs involving emotional state; E78.00 Pure hypercholesterolemia, unspecified; R63.4 Abnormal weight loss; N40.0 Benign prostatic hyperplasia without lower urinary tract symptoms; Z86.79 Personal history of other diseases of the circulatory system
CPT/HCPCS: 36415; 80053; 85027; 86593

== ENCOUNTER 2018-12-15 09:54 | Inpatient (IN) | payer OTHER ==
--- NOTE | 2018-12-15 10:50 | HP ---
CIWA Score Nausea/Vomitin Muscle Tremors: 2 Anxiety: 2 Agitation: 2 Paroxysmal Sweats: 1-Minimal Palms Moist Orientation: 0-Oriented Tacttile Disturbances: 1-Very Mild Itch/Numbness Auditory Disturbances: 1-Very Mild Visual Disturbances: 0-None Headache: 2-Mild CIWA-Ar Total Score: 13 - Admission Criteria OASAS Guidelines: Admission for Medically Managed Detox: Requires at least one of the followin. CIWA greater than 12 2. Seizures within the past 24 hours 3. Delirium tremens within the past 24 hours 4. Hallucinations within the past 24 hours 5. Acute intervention needed for co occurring medical disorder 6. Acute intervention needed for co occurring psychiatric disorder 7. Severe withdrawal that cannot be handled at a lower level of care (continued vomiting, continued diarrhea, abnormal vital signs) requiring intravenous medication and/or fluids 8. Patient presents the following: CIWA greater than 12 Admission Criteria Met: Admission criteria met Admission ROS B[facility] - HPI Chief Complaint: i need help to stop drinking alcohol Allergies/Adverse Reactions: Allergies Allergy/AdvReac Type Severity Reaction Status Date / Time No Known Allergies Allergy Verified 11/20/18 12:33 History of Present Illness: this 63 years old male with alcohol dependence,seeking detox,withdrawal symptom, last detox [facility] 11/20/18 to 11/23/18 nicotine dependence weight loss multiple admissions in detox plan to go to rehab after detox Exam Limitations: No Limitations - Ebola screening Have you traveled outside of the country in the last 21 days: No (N) Have you had contact with anyone from an Ebola affected area: No Have you been sick,other than usual withdrawal symptoms: No Do you have a fever: No - Review of Systems Constitutional: Loss of Appetite, Malaise, Night Sweats, Changes in sleep, Weakness, Unintentional Wgt. Loss EENT: reports: Nose Congestion Respiratory: reports: No Symptoms reported Cardiac: reports: No Symptoms Reported GI: reports: Nausea, Poor Appetite, Abdominal cramping : reports: No Symptoms Reported Musculoskeletal: reports: Back Pain, Muscle Pain Integumentary: reports: Dryness Neuro: reports: Headache, Tremors Endocrine: reports: No Symptoms Reported Hematology: reports: No Symptoms Reported Psychiatric: reports: No Sypmtoms Reported, Judgement Intact, Mood/Affect Appropiate, Orientated x3 Other Systems: Reviewed and Negative Patient History - Patient Medical History Hx Anemia: No Hx Asthma: No Hx Chronic Obstructive Pulmonary Disease (COPD): No Hx Cancer: No Hx Cardiac Disorders: No Hx Congestive Heart Failure: No Hx Hypertension: No Hx Hypercholesterolemia: Yes (no medciation) Hx Pacemaker: No HX Cerebrovascular Accident: No Hx Seizures: No Hx Dementia: No Hx Diabetes: No Hx Gastrointestinal Disorders: No Hx Liver Disease: No Hx Genitourinary Disorders: No Hx Sexually Transmitted Disorders: No Hx Renal Disease (ESRD): No Hx Thyroid Disease: No Hx Human Immunodeficiency Virus (HIV): No (in 2013 negative) Hx Hepatitis C: No Hx Depression: No Hx Suicide Attempt: No Hx Bipolar Disorder: No Hx Schizophrenia: No Other Medical History: no suicdal,no homicidal - Patient Surgical History Past Surgical History: No Hx Neurologic Surgery: No Hx Cataract Extraction: No Hx Cardiac Surgery: No Hx Lung Surgery: No Hx Breast Surgery: No Hx Breast Biopsy: No Hx Abdominal Surgery: No Hx Appendectomy: No Hx Cholecystectomy: No Hx Genitourinary Surgery: No Hx Section: No Hx Orthopedic Surgery: No Hx Hysterectomy: No Anesthesia Reaction: No - PPD History Previous Implant?: Yes Documented Results: Positive w/proof Date: 10/06/12 Results: 15 mm PPD to be Administered?: No - Smoking Cessation Smoking history: Current every day smoker Have you smoked in the past 12 months: Yes Aproximately how many cigarettes per day: 20 Cigars Per Day: 0 Hx Chewing Tobacco Use: No Initiated information on smoking cessation: Yes 'Breaking Loose' booklet given: 12/15/18 - Substance & Tx. History Hx Alcohol Use: Yes Hx Substance Use: No Substance Use Type: Alcohol Hx Substance Use Treatment: Yes ([facility] 11/20/18 to 11/23/18) - Substances Abused Alcohol Route: Oral Frequency: Daily Amount used: 2pints of vodka/6 [acks of 16 ozs of beer Age of first use: 28 Date of Last Use: 12/15/18 Family Disease History - Family Disease History Family Disease History: Other: Father (alcoholism.), Mother (alcoholism, ), Brother (addiction, alcoholism) Admission Physical Exam BHS - Vital Signs Vital Signs: Vital Signs - 24 hr 12/15/18 10:12 Temperature 97.1 F L Pulse Rate 98 H Respiratory 18 Rate Blood Pressure 130/73 - Physical General Appearance: Yes: Moderate Distress, Intoxicated, Tremorous, Irritable, Sweating, Anxious HEENTM: Yes: Normal ENT Inspection, DADA, Pharynx Normal Respiratory: Yes: Lungs Clear, Normal Breath Sounds, No Respiratory Distress Neck: Yes: Within Normal Limits, Supple, Trachea in good position Breast: Yes: Within Normal Limits Cardiology: Yes: Within Normal Limits, Regular Rhythm, Regular Rate, S1, S2 Abdominal: Yes: Within Normal Limits, Normal Bowel Sounds, Soft Genitourinary: Yes: Within Normal Limits Back: Yes: Muscle Spasm Musculoskeletal: Yes: Back pain, Muscle Pain Extremities: Yes: Tremors Neurological: Yes: carding utility tender II-XII NML intact, Fully Oriented, Alert, Motor Strength 5/5 Integumentary: Yes: Dry Lymphatic: Yes: Within Normal Limits - Diagnostic (1) Alcohol dependence with uncomplicated withdrawal Current Visit: No Status: Chronic (2) Weight loss Current Visit: No Status: Acute (3) Dehydration Current Visit: No Status: Chronic (4) Nicotine dependence Current Visit: No Status: Chronic Qualifiers: Nicotine product type: cigarettes Substance use status: uncomplicated Qualified Code(s): F17.210 - Nicotine dependence, cigarettes, uncomplicated (5) Hypercholesterolemia Current Visit: Yes Status: Acute (6) Alcohol dependence with uncomplicated intoxication Current Visit: Yes Status: Acute (7) BPH (benign prostatic hyperplasia) Current Visit: No Status: Chronic Qualifiers: Lower urinary tract symptom presence: unspecified whether lower urinary tract symptoms present Qualified Code(s): N40.0 - Benign prostatic hyperplasia without lower urinary tract symptoms Cleared for Admission [facility] - Detox or Rehab [facility] Level of Care: Medically Managed Detox Regimen/Protocol: Librium [facility] Breath Alcohol Content Breath Alcohol Content: 0.393 Urine Drug Screen - Results Drug Screen Negative: No Urine Drug Screen Results: THC-Marijuana Inpatient Rehab Admission - Rehab Decision to Admit Inpatient rehab admission?: No
[2018-12-15] MEDS ORDERED: MAGNESIUM HYDROX 2400MG/30ML ORAL SUSPENSION 30 ML CUP PO PRN (11:13)
[2018-12-15] MEDS ORDERED: P-EPHED 60MG/TRIPROLIDI 2.5MG TABLET PO PRN (11:13)
[2018-12-15] MEDS ORDERED: IBUPROFEN 400 MG TABLET (FP) PO PRN (11:13)
[2018-12-15] MEDS ORDERED: LOPERAMIDE HCL 2 MG CAPSULE PO PRN (11:13)
[2018-12-15] MEDS ORDERED: MAG HYDROX/AL HYDROX/SIMETH 30 ML UNIT-DOSE CUP PO PRN (11:13)
[2018-12-15] MEDS ORDERED: MAGNESIUM CITRATE 300 ML BOTTLE PO PRN (11:13)
[2018-12-15] MEDS ORDERED: ACETAMINOPHEN 325 MG TABLET (FP) PO PRN (11:13)
[2018-12-15] MEDS ORDERED: chlordiazePOXIDE HCL 25 MG CAPSULE PO PRN (11:13)
[2018-12-15] MEDS ORDERED: MENTHOL/PHENOL 1 EACH UD MM PRN (11:13)
[2018-12-15] MEDS ORDERED: guaiFENesin/D-METHORPHAN HB 10 ML UNIT-DOSE CUPS PO PRN (11:13)
[2018-12-15] MEDS: TAMSULOSIN HCL 0.4 MG CAP PO SCH (12:44)
[2018-12-15] MEDS: chlordiazePOXIDE HCL 25 MG CAPSULE PO SCH ×2 (17:04→22:11)
[2018-12-15] MEDS: THIAMINE HCL 100 MG TABLET (FP) PO SCH (22:10)
[2018-12-15] MEDS: MELATONIN 5 MG TABLETS PO PRN (22:11)
[2018-12-16] MEDS: chlordiazePOXIDE HCL 25 MG CAPSULE PO SCH ×4 (05:38→22:18)
[2018-12-16] MEDS: PRENATAL VITAMINS W/ FOLIC ACID TABLET (FP) PO SCH (10:09)
[2018-12-16] MEDS: TAMSULOSIN HCL 0.4 MG CAP PO SCH (10:09)
[2018-12-16 10:35] LABS: HEMATOCRIT 38.3 % (35.4-49); HEMOGLOBIN 13.6 GM/dL (11.7-16.9); MCH 34.8 pg (25.7-33.7); MCHC 35.4 g/dl (32.0-35.9); MEAN CELL VOLUME 98.3 fl (80-96); MEAN PLT VOLUME 9.7 fl (7.5-11.1); PLATELET COUNT 277 K/MM3 (134-434); RDW 14.8 % (11.9-15.9); WHITE BLOOD COUNT 7.9 K/mm3 (4.0-10.0)
[2018-12-16 11:15] LABS: ALBUMIN 3.4 g/dl (3.4-5.0); ALK PHOS 78 U/L (45-117); ANION GAP 6 MMOL/L (8-16); BILIRUBIN,TOTAL 0.5 mg/dL (0.2-1); BLOOD UREA NITROGEN 24 mg/dL (7-18); CALCIUM 8.3 mg/dL (8.5-10.1); CHLORIDE 105 mmol/L (98-107); CO2 31 mmol/L (21-32); CREATININE 0.7 mg/dL (0.55-1.3); GLUCOSE,RANDOM 84 mg/dL (74-106); SGOT/AST 31 U/L (15-37); SGPT/ALT 27 U/L (13-61); SODIUM 142 mmol/L (136-145); TOT PROT 6.1 g/dl (6.4-8.2)
--- NOTE | 2018-12-16 11:51 | PN ---
S CIWA - CIWA Score Nausea/Vomitin-Mild Nausea/No Vomiting Muscle Tremors: 3 Anxiety: 2 Agitation: 2 Paroxysmal Sweats: 1-Minimal Palms Moist Orientation: 0-Oriented Tacttile Disturbances: 0-None Auditory Disturbances: 0-None Visual Disturbances: 0-None Headache: 2-Mild CIWA-Ar Total Score: 11 S Progress Note (SOAP) Subjective: tremor sweating low energy Objective: 12/16/18 11:49 Vital Signs Temperature 97.7 F 12/16/18 09:39 Pulse Rate 82 12/16/18 09:39 Respiratory Rate 18 12/16/18 09:39 Blood Pressure 115/75 12/16/18 09:39 O2 Sat by Pulse Oximetry (%) Laboratory Last Values WBC 7.9 K/mm3 (4.0-10.0) 12/16/18 07:50 RBC 3.90 M/mm3 (4.00-5.60) L 12/16/18 07:50 Hgb 13.6 GM/dL (11.7-16.9) 12/16/18 07:50 Hct 38.3 % (35.4-49) D 12/16/18 07:50 MCV 98.3 fl (80-96) H 12/16/18 07:50 MCH 34.8 pg (25.7-33.7) H 12/16/18 07:50 MCHC 35.4 g/dl (32.0-35.9) 12/16/18 07:50 RDW 14.8 % (11.9-15.9) 12/16/18 07:50 Plt Count 277 K/MM3 (134-434) D 12/16/18 07:50 MPV 9.7 fl (7.5-11.1) 12/16/18 07:50 Sodium 142 mmol/L (136-145) 12/16/18 07:50 Potassium 4.0 mmol/L (3.5-5.1) 12/16/18 07:50 Chloride 105 mmol/L (98-107) 12/16/18 07:50 Carbon Dioxide 31 mmol/L (21-32) 12/16/18 07:50 Anion Gap 6 MMOL/L (8-16) L 12/16/18 07:50 BUN 24 mg/dL (7-18) H 12/16/18 07:50 Creatinine 0.7 mg/dL (0.55-1.3) 12/16/18 07:50 Creat Clearance w eGFR > 60 (>60) 12/16/18 07:50 Random Glucose 84 mg/dL (74-106) 12/16/18 07:50 Calcium 8.3 mg/dL (8.5-10.1) L 12/16/18 07:50 Total Bilirubin 0.5 mg/dL (0.2-1) 12/16/18 07:50 AST 31 U/L (15-37) 12/16/18 07:50 ALT 27 U/L (13-61) 12/16/18 07:50 Alkaline Phosphatase 78 U/L (45-117) 12/16/18 07:50 Total Protein 6.1 g/dl (6.4-8.2) L 12/16/18 07:50 Albumin 3.4 g/dl (3.4-5.0) 12/16/18 07:50 RPR Titer Nonreactive (NONREACTIVE) 12/16/18 07:50 lab noted Assessment: 12/16/18 11:50 withdrawal sx Plan: continue detox repeat bun
[2018-12-16] MEDS: THIAMINE HCL 100 MG TABLET (FP) PO SCH (22:18)
[2018-12-16] MEDS: MELATONIN 5 MG TABLETS PO PRN (22:19)
[2018-12-17] MEDS: chlordiazePOXIDE HCL 25 MG CAPSULE PO SCH ×2 (05:31→10:03)
[2018-12-17] MEDS: PRENATAL VITAMINS W/ FOLIC ACID TABLET (FP) PO SCH (10:03)
[2018-12-17] MEDS: TAMSULOSIN HCL 0.4 MG CAP PO SCH (11:13)
--- NOTE | 2018-12-17 14:44 | PN ---
[facility] CIWA - CIWA Score Nausea/Vomitin-No Nausea/No Vomiting Muscle Tremors: 1-None Visible, but Stella Anxiety: 1-Mildly Anxious Agitation: 1-Slight > Activity Paroxysmal Sweats: 1-Minimal Palms Moist Orientation: 1-Uncertain about Date Tacttile Disturbances: 0-None Auditory Disturbances: 0-None Visual Disturbances: 0-None Headache: 2-Mild CIWA-Ar Total Score: 7 BHS Progress Note (SOAP) Subjective: tremor sweating anxiety restlessness Objective: 12/17/18 14:46 Vital Signs Temperature 97.6 F 12/17/18 13:49 Pulse Rate 89 12/17/18 13:49 Respiratory Rate 18 12/17/18 13:49 Blood Pressure 122/72 12/17/18 13:49 O2 Sat by Pulse Oximetry (%) Laboratory Last Values WBC 7.9 K/mm3 (4.0-10.0) 12/16/18 07:50 RBC 3.90 M/mm3 (4.00-5.60) L 12/16/18 07:50 Hgb 13.6 GM/dL (11.7-16.9) 12/16/18 07:50 Hct 38.3 % (35.4-49) D 12/16/18 07:50 MCV 98.3 fl (80-96) H 12/16/18 07:50 MCH 34.8 pg (25.7-33.7) H 12/16/18 07:50 MCHC 35.4 g/dl (32.0-35.9) 12/16/18 07:50 RDW 14.8 % (11.9-15.9) 12/16/18 07:50 Plt Count 277 K/MM3 (134-434) D 12/16/18 07:50 MPV 9.7 fl (7.5-11.1) 12/16/18 07:50 Sodium 142 mmol/L (136-145) 12/16/18 07:50 Potassium 4.0 mmol/L (3.5-5.1) 12/16/18 07:50 Chloride 105 mmol/L (98-107) 12/16/18 07:50 Carbon Dioxide 31 mmol/L (21-32) 12/16/18 07:50 Anion Gap 6 MMOL/L (8-16) L 12/16/18 07:50 BUN 17 mg/dL (7-18) 12/17/18 07:50 Creatinine 0.7 mg/dL (0.55-1.3) 12/16/18 07:50 Creat Clearance w eGFR > 60 (>60) 12/16/18 07:50 Random Glucose 84 mg/dL (74-106) 12/16/18 07:50 Calcium 8.3 mg/dL (8.5-10.1) L 12/16/18 07:50 Total Bilirubin 0.5 mg/dL (0.2-1) 12/16/18 07:50 AST 31 U/L (15-37) 12/16/18 07:50 ALT 27 U/L (13-61) 12/16/18 07:50 Alkaline Phosphatase 78 U/L (45-117) 12/16/18 07:50 Total Protein 6.1 g/dl (6.4-8.2) L 12/16/18 07:50 Albumin 3.4 g/dl (3.4-5.0) 12/16/18 07:50 RPR Titer Nonreactive (NONREACTIVE) 12/16/18 07:50 lab noted Assessment: 12/17/18 14:46 withdrawal sx Plan: continue detox
[2018-12-17] MEDS: chlordiazePOXIDE 5 MG CAPSULE PO SCH ×2 (18:09→22:00)
[2018-12-17] MEDS: THIAMINE HCL 100 MG TABLET (FP) PO SCH (22:00)
[2018-12-18] MEDS: chlordiazePOXIDE 5 MG CAPSULE PO SCH ×2 (05:36→10:47)
[2018-12-18 09:39] VITALS: BP 118/83; PULSE 85; TEMP 97.8
[2018-12-18] MEDS: PRENATAL VITAMINS W/ FOLIC ACID TABLET (FP) PO SCH (10:46)
[2018-12-18] MEDS: TAMSULOSIN HCL 0.4 MG CAP PO SCH (10:46)
--- NOTE | 2018-12-18 13:13 | DS ---
[facility] Detox Discharge Summary Admission Date: 12/15/18 Discharge Date: 12/18/18 - History Present History: Alcohol Dependence Additional Comments: 63 years old male admitted on 12/15/18 for alcohol withdrawal stabilization completed detox regimen aftercare [facility] Pertinent Past History: encourage keep medication list in wallet update medication list when change of medication bring lab report to aftercare appointment - Physical Exam Results Vital Signs: Vital Signs Temperature 97.8 F 12/18/18 09:38 Pulse Rate 85 12/18/18 09:38 Respiratory Rate 18 12/18/18 09:38 Blood Pressure 118/83 12/18/18 09:38 O2 Sat by Pulse Oximetry (%) Pertinent Admission Physical Exam Findings: alcohol withdrawal sx Laboratory Last Values WBC 7.9 K/mm3 (4.0-10.0) 12/16/18 07:50 RBC 3.90 M/mm3 (4.00-5.60) L 12/16/18 07:50 Hgb 13.6 GM/dL (11.7-16.9) 12/16/18 07:50 Hct 38.3 % (35.4-49) D 12/16/18 07:50 MCV 98.3 fl (80-96) H 12/16/18 07:50 MCH 34.8 pg (25.7-33.7) H 12/16/18 07:50 MCHC 35.4 g/dl (32.0-35.9) 12/16/18 07:50 RDW 14.8 % (11.9-15.9) 12/16/18 07:50 Plt Count 277 K/MM3 (134-434) D 12/16/18 07:50 MPV 9.7 fl (7.5-11.1) 12/16/18 07:50 Sodium 142 mmol/L (136-145) 12/16/18 07:50 Potassium 4.0 mmol/L (3.5-5.1) 12/16/18 07:50 Chloride 105 mmol/L (98-107) 12/16/18 07:50 Carbon Dioxide 31 mmol/L (21-32) 12/16/18 07:50 Anion Gap 6 MMOL/L (8-16) L 12/16/18 07:50 BUN 17 mg/dL (7-18) 12/17/18 07:50 Creatinine 0.7 mg/dL (0.55-1.3) 12/16/18 07:50 Creat Clearance w eGFR > 60 (>60) 12/16/18 07:50 Random Glucose 84 mg/dL (74-106) 12/16/18 07:50 Calcium 8.3 mg/dL (8.5-10.1) L 12/16/18 07:50 Total Bilirubin 0.5 mg/dL (0.2-1) 12/16/18 07:50 AST 31 U/L (15-37) 12/16/18 07:50 ALT 27 U/L (13-61) 12/16/18 07:50 Alkaline Phosphatase 78 U/L (45-117) 12/16/18 07:50 Total Protein 6.1 g/dl (6.4-8.2) L 12/16/18 07:50 Albumin 3.4 g/dl (3.4-5.0) 12/16/18 07:50 RPR Titer Nonreactive (NONREACTIVE) 12/16/18 07:50 lab noted - Treatment Hospital Course: Detox Protocol Followed, Detoxed Safely, Responded well, Discharged Condition Good, Rehab Referral Accepted Patient has Accepted [facility] - Medication Discharge Medications: Ambulatory Orders Ranitidine [Zantac -] 150 mg PO BID 12/16/18 Amlodipine Besylate [Norvasc -] 5 mg PO DAILY #7 tablet 12/18/18 Tamsulosin HCl [Flomax -] 0.4 mg PO DAILY #7 cap.er.24h 12/18/18 - Diagnosis (1) Alcohol dependence with uncomplicated intoxication Status: Acute (2) Drug-induced mood disorder Status: Suspected (3) Weight loss Status: Acute (4) BPH (benign prostatic hyperplasia) Status: Chronic Qualifiers: Lower urinary tract symptom presence: unspecified whether lower urinary tract symptoms present Qualified Code(s): N40.0 - Benign prostatic hyperplasia without lower urinary tract symptoms (5) Nicotine dependence Status: Acute Qualifiers: Nicotine product type: cigarettes Substance use status: in withdrawal Qualified Code(s): F17.213 - Nicotine dependence, cigarettes, with withdrawal - AMA Did Patient Leave Against Medical Advice: No
[2018-12-18] MEDS ORDERED: chlordiazePOXIDE HCL 10 MG CAPSULE PO SCH (17:00)
== END 2018-12-18 09:03 | disposition home or self-care (01) | DRG 897 ==
LOC: YASAS 09:54 → Y3N 11:30
PROVIDERS: ADMIT Surgery; ATTEND Surgery
PROC: HZ2ZZZZ Detoxification Services for Substance Abuse Treatment (ICD-10-PCS; principal; 2018-12-15)
DX: F10.230 Alcohol dependence with withdrawal, uncomplicated (principal); F17.213 Nicotine dependence, cigarettes, with withdrawal; F19.24 Other psychoactive substance dependence with psychoactive substance-induced mood disorder; N40.0 Benign prostatic hyperplasia without lower urinary tract symptoms
CPT/HCPCS: 36415; 80053; 84520; 85027; 86593

== ENCOUNTER 2019-05-17 08:59 | Inpatient (IN) | payer OTHER ==
[2019-05-17 09:32] VITALS: BMI 20.3
--- NOTE | 2019-05-17 10:47 | HP ---
CIWA Score Nausea/Vomitin-Mild Nausea/No Vomiting Muscle Tremors: 4-Moderate,w/Arms Extend Anxiety: 4-Mod. Anxious/Guarded Agitation: 0-Normal Activity Paroxysmal Sweats: No Perspiration Orientation: 0-Oriented Tacttile Disturbances: 0-None Auditory Disturbances: 0-None Visual Disturbances: 0-None Headache: 0-None Present CIWA-Ar Total Score: 9 - Admission Criteria OASAS Guidelines: Admission for Medically Managed Detox: Requires at least one of the followin. CIWA greater than 12 2. Seizures within the past 24 hours 3. Delirium tremens within the past 24 hours 4. Hallucinations within the past 24 hours 5. Acute intervention needed for co occurring medical disorder 6. Acute intervention needed for co occurring psychiatric disorder 7. Severe withdrawal that cannot be handled at a lower level of care (continued vomiting, continued diarrhea, abnormal vital signs) requiring intravenous medication and/or fluids 8. Admission ROS S - HPI Allergies/Adverse Reactions: Allergies Allergy/AdvReac Type Severity Reaction Status Date / Time No Known Allergies Allergy Verified 12/15/18 11:33 History of Present Illness: patient here requesting detox from etoh use , reports latest use today to stop tremors , reports daily 1 x 6-pk beer and 2 pints/ day x 20 years denies seizures , blackouts , denies falls while intoxicated . Previous detox at this facility Oct 2018 current symptoms as above, SHERICE 0.032 . tobacco : 10-12 cigs/day cannabis : denies PMHX : hld, PSHx : r shoulder surgery 3 mo ago / RTC [facility], using [facility] : denies SHx : lives w/ friend Exam Limitations: Clinical Condition, Intoxication - Ebola screening Have you traveled outside of the country in the last 21 days: No Have you had contact with anyone from an Ebola affected area: No Do you have a fever: No - Review of Systems Constitutional: See HPI EENT: reports: See HPI, Other (dentures upper) Respiratory: reports: No Symptoms reported Cardiac: reports: No Symptoms Reported GI: reports: See HPI, Nausea : reports: No Symptoms Reported Integumentary: reports: See HPI Neuro: reports: See HPI, Tremors Endocrine: reports: No Symptoms Reported Psychiatric: reports: Orientated x3, Anxious Patient History - Patient Medical History Hx Anemia: No Hx Asthma: No Hx Chronic Obstructive Pulmonary Disease (COPD): No Hx Cancer: No Hx Cardiac Disorders: No Hx Congestive Heart Failure: No Hx Hypertension: No Hx Hypercholesterolemia: Yes (no medciation) Hx Pacemaker: No HX Cerebrovascular Accident: No Hx Seizures: No Hx Dementia: No Hx Diabetes: No Hx Gastrointestinal Disorders: No Hx Liver Disease: No Hx Genitourinary Disorders: No Hx Sexually Transmitted Disorders: No Hx Renal Disease (ESRD): No Hx Thyroid Disease: No Hx Human Immunodeficiency Virus (HIV): No (in 2013 negative) Hx Hepatitis C: No Hx Depression: No Hx Suicide Attempt: No Hx Bipolar Disorder: No Hx Schizophrenia: No - Patient Surgical History Past Surgical History: No Hx Neurologic Surgery: No Hx Cataract Extraction: No Hx Cardiac Surgery: No Hx Lung Surgery: No Hx Breast Surgery: No Hx Breast Biopsy: No Hx Abdominal Surgery: No Hx Appendectomy: No Hx Cholecystectomy: No Hx Genitourinary Surgery: No Hx Section: No Hx Orthopedic Surgery: No Hx Hysterectomy: No Anesthesia Reaction: No - PPD History Date: 10/06/12 Results: 15 mm - Smoking Cessation Smoking history: Current every day smoker Have you smoked in the past 12 months: Yes Aproximately how many cigarettes per day: 20 Cigars Per Day: 0 Hx Chewing Tobacco Use: No Initiated information on smoking cessation: No - Substances abused Alcohol Substance route: Oral Frequency: Daily Amount used: 1 pint vodka, 6 pack 120z beer Age of first use: 30 Date of last use: 05/17/19 Family Disease History - Family Disease History Family Disease History: Other: Father (alcoholism.), Mother (alcoholism, ), Brother (addiction, alcoholism) Admission Physical Exam S - Vital Signs Vital Signs: Vital Signs - 24 hr 05/17/19 05/17/19 09:29 10:20 Temperature 97.3 F L 97.3 F L Pulse Rate 105 H 105 H Respiratory 16 16 Rate Blood Pressure 116/75 116/75 - Physical General Appearance: Yes: Disheveled, Moderate Distress, Alcohol on Breath, Intoxicated, Tremorous, Anxious HEENTM: Yes: EOMI, Hearing grossly Normal, Normocephalic, Normal Voice Respiratory: Yes: Lungs Clear, Normal Breath Sounds, No Respiratory Distress, No Accessory Muscle Use Neck: Yes: No masses,lesions,Nodules, Trachea in good position Cardiology: Yes: Regular Rhythm, Regular Rate, S1, S2 Abdominal: Yes: Non Tender, Soft Back: Yes: Normal Inspection Musculoskeletal: Yes: Joint Stiffness (r shoulder decreased ROM surgical scar ) Extremities: Yes: Normal Range of Motion, Non-Tender, Tremors Neurological: Yes: Fully Oriented, Alert, Motor Strength 5/5, Normal Mood/Affect Integumentary: Yes: Warm - Diagnostic (1) Alcohol dependence with uncomplicated intoxication Current Visit: Yes Status: Acute (2) Nicotine dependence Current Visit: Yes Status: Acute Qualifiers: Nicotine product type: cigarettes Breathalyzer - Breathalyzer Breathalyzer: 0.032 Urine Drug Screen - Test Device Lot number: [id number] Expiration date: 02/26/21 - Control Is test valid?: Yes - Results Drug screen NEGATIVE: No Urine drug screen results: THC-Marijuana Inpatient Rehab Admission - Rehab Decision to Admit Inpatient rehab admission?: No
[2019-05-17] MEDS ORDERED: BISMUTH SUBSALICYLATE 262 MG/15 ML BTL PO PRN (10:50)
[2019-05-17] MEDS ORDERED: ACETAMINOPHEN 325 MG TABLET (FP) PO PRN ×2 (10:50)
[2019-05-17] MEDS ORDERED: NICOTINE POLACRILEX 2 MG GUM BUC PRN (10:50)
[2019-05-17] MEDS ORDERED: hydrOXYzine HCL 25 MG TABLET (FP) PO PRN (10:50)
[2019-05-17] MEDS ORDERED: IBUPROFEN 400 MG TABLET (FP) PO PRN (10:50)
[2019-05-17] MEDS ORDERED: MAGNESIUM CITRATE 300 ML BOTTLE PO PRN (10:50)
[2019-05-17] MEDS ORDERED: MAGNESIUM HYDROX 2400MG/30ML ORAL SUSPENSION 30 ML CUP PO PRN (10:50)
[2019-05-17] MEDS ORDERED: MAG HYDROX/AL HYDROX/SIMETH 30 ML UNIT-DOSE CUP PO PRN (10:50)
[2019-05-17] MEDS ORDERED: MENTHOL/PHENOL 1 EACH UD MM PRN (10:50)
[2019-05-17] MEDS ORDERED: chlordiazePOXIDE HCL 25 MG CAPSULE PO PRN (10:51)
[2019-05-17] MEDS: chlordiazePOXIDE HCL 25 MG CAPSULE PO SCH ×3 (12:09→22:40)
[2019-05-17] MEDS: THIAMINE HCL 100 MG TABLET (FP) PO SCH (22:40)
[2019-05-17] MEDS: MELATONIN 5 MG TABLETS PO PRN (22:41)
[2019-05-18] MEDS: chlordiazePOXIDE HCL 25 MG CAPSULE PO SCH ×4 (06:20→22:31)
[2019-05-18] MEDS: PRENATAL VITAMINS W/ FOLIC ACID TABLET (FP) PO SCH (10:14)
[2019-05-18] MEDS: TAMSULOSIN HCL 0.4 MG CAP PO SCH (10:14)
--- NOTE | 2019-05-18 10:23 | PN ---
S CIWA - CIWA Score Nausea/Vomitin-No Nausea/No Vomiting Muscle Tremors: 2 Anxiety: 2 Agitation: 2 Paroxysmal Sweats: 3 Orientation: 0-Oriented Tacttile Disturbances: 0-None Auditory Disturbances: 0-None Visual Disturbances: 0-None Headache: 0-None Present CIWA-Ar Total Score: 9 BHS Progress Note (SOAP) Subjective: c/o sweats, anxiety, and shakes. Objective: 05/18/19 10:22 Vital Signs 05/18/19 05/18/19 05/18/19 03:30 07:35 09:45 Temperature 97.7 F 97.8 F Pulse Rate 73 92 H Respiratory 18 18 18 Rate Blood Pressure 122/74 120/70 Labs pending. Assessment: 05/18/19 10:22 AOX3, in no acute distress. Full ROM, ambulating in the unit. withdrawal symptoms. Plan: continue detox.
[2019-05-18 15:14] LABS: ALBUMIN 3.6 g/dl (3.4-5.0); BILIRUBIN,TOTAL 1.1 mg/dL (0.2-1); BLOOD UREA NITROGEN 23.4 mg/dL (7-18); CALCIUM 8.5 mg/dL (8.5-10.1); CREATININE 0.8 mg/dL (0.55-1.3); TOT PROT 6.7 g/dl (6.4-8.2)
[2019-05-18 15:27] LABS: HEMATOCRIT 41.9 % (35.4-49); HEMOGLOBIN 14.2 GM/dL (11.7-16.9); MCH 32.6 pg (25.7-33.7); MCHC 33.8 g/dl (32.0-35.9); MEAN CELL VOLUME 96.3 fl (80-96); PLATELET COUNT 201 K/MM3 (134-434); RBC 4.35 M/mm3 (4.00-5.60); RDW 14.5 % (11.9-15.9); WHITE BLOOD COUNT 8.2 K/mm3 (4.0-10.0)
[2019-05-18] MEDS: THIAMINE HCL 100 MG TABLET (FP) PO SCH (22:30)
[2019-05-19] MEDS: chlordiazePOXIDE HCL 25 MG CAPSULE PO SCH ×4 (05:50→22:12)
[2019-05-19] MEDS: TAMSULOSIN HCL 0.4 MG CAP PO SCH (10:09)
[2019-05-19] MEDS: PRENATAL VITAMINS W/ FOLIC ACID TABLET (FP) PO SCH (10:09)
--- NOTE | 2019-05-19 11:41 | PN ---
S CIWA - CIWA Score Nausea/Vomitin-No Nausea/No Vomiting Muscle Tremors: None Anxiety: 2 Agitation: 2 Paroxysmal Sweats: 3 Orientation: 0-Oriented Tacttile Disturbances: 0-None Auditory Disturbances: 0-None Visual Disturbances: 0-None Headache: 2-Mild CIWA-Ar Total Score: 9 BHS Progress Note (SOAP) Subjective: PATIENT C/O NIGHT SWEATS, MILD HEADACHE AND ANXIETY/RESTLESSNESS. Objective: 05/19/19 11:40 Laboratory Tests 05/18/19 05/18/19 05/18/19 09:45 09:45 09:45 WBC 8.2 RBC 4.35 Hgb 14.2 Hct 41.9 MCV 96.3 H MCH 32.6 MCHC 33.8 RDW 14.5 Plt Count 201 D MPV 10.0 Sodium 138 Potassium 4.0 Chloride 100 Carbon Dioxide 31 Anion Gap 7 L BUN 23.4 H Creatinine 0.8 Est GFR (CKD-EPI)AfAm 108.65 Est GFR (CKD-EPI)NonAf 93.74 Random Glucose 101 Calcium 8.5 Total Bilirubin 1.1 H AST 56 H ALT 42 Alkaline Phosphatase 94 Total Protein 6.7 Albumin 3.6 RPR Titer Nonreactive Vital Signs Temperature 97.7 F 05/19/19 09:16 Pulse Rate 108 H 05/19/19 09:16 Respiratory Rate 16 05/19/19 09:16 Blood Pressure 110/72 05/19/19 09:16 O2 Sat by Pulse Oximetry (%) PE: ALERT AND ORIENTED X 3 SKIN WARM AND DRY CAR S1S2 RESP CTA BL EXT FULL ROM, NO EDEMA, NO TREMORS Assessment: 05/19/19 11:41 WITHDRAWAL SX Plan: CONTINUE DETOX ENCOURAGED ORAL FLUIDS MONITOR CLINICALLY
[2019-05-19] MEDS ORDERED: BENZOCAINE 20 % GEL TUBE MM PRN (12:18)
[2019-05-19] MEDS: THIAMINE HCL 100 MG TABLET (FP) PO SCH (22:12)
[2019-05-19] MEDS: MELATONIN 5 MG TABLETS PO PRN (22:12)
[2019-05-20] MEDS ORDERED: chlordiazePOXIDE HCL 10 MG CAPSULE PO PRN
[2019-05-20] MEDS ORDERED: chlordiazePOXIDE HCL 10 MG CAPSULE PO SCH (05:00)
[2019-05-20 06:26] VITALS: BP 101/70; PULSE 81; TEMP 97.4
--- NOTE | 2019-05-20 09:44 | DS ---
[facility] Detox Discharge Summary Admission Date: 05/17/19 Discharge Date: 05/20/19 - History Present History: Alcohol Dependence, Cannabis Dependence - Physical Exam Results Vital Signs: Vital Signs Temperature 97.4 F L 05/20/19 06:00 Pulse Rate 81 05/20/19 06:00 Respiratory Rate 16 05/20/19 06:00 Blood Pressure 101/70 05/20/19 06:00 O2 Sat by Pulse Oximetry (%) Pertinent Admission Physical Exam Findings: pt admitted in withdrawals Laboratory Tests 05/18/19 05/18/19 05/18/19 09:45 09:45 09:45 WBC 8.2 RBC 4.35 Hgb 14.2 Hct 41.9 MCV 96.3 H MCH 32.6 MCHC 33.8 RDW 14.5 Plt Count 201 D MPV 10.0 Sodium 138 Potassium 4.0 Chloride 100 Carbon Dioxide 31 Anion Gap 7 L BUN 23.4 H Creatinine 0.8 Est GFR (CKD-EPI)AfAm 108.65 Est GFR (CKD-EPI)NonAf 93.74 Random Glucose 101 Calcium 8.5 Total Bilirubin 1.1 H AST 56 H ALT 42 Alkaline Phosphatase 94 Total Protein 6.7 Albumin 3.6 RPR Titer Nonreactive today pt is aaox3 ambulating no acute distress no s/s of withdrawalsx - Treatment Hospital Course: Detox Protocol Followed, Detoxed Safely, Responded well, Discharged Condition Good, Rehab Referral Accepted Patient has Accepted a Rehab Referral to: pt declined rehab - Medication Discharge Medications: Ambulatory Orders Tamsulosin HCl [Flomax -] 0.4 mg PO DAILY #7 cap.er.24h 12/18/18 Naltrexone HCl 50 05/17/19 - Diagnosis (1) Alcohol dependence with uncomplicated intoxication Current Visit: Yes Status: Chronic (2) Nicotine dependence Current Visit: Yes Status: Chronic Qualifiers: Nicotine product type: cigarettes Substance use status: uncomplicated Qualified Code(s): F17.210 - Nicotine dependence, cigarettes, uncomplicated (3) Anxious mood Current Visit: Yes Status: Acute (4) Cannabis abuse Current Visit: Yes Status: Acute (5) Depressed affect Current Visit: No Status: Acute (6) Hypercholesterolemia Current Visit: Yes Status: Chronic (7) Insomnia Current Visit: No Status: Acute Qualifiers: Insomnia type: unspecified Qualified Code(s): G47.00 - Insomnia, unspecified (8) Weight loss Current Visit: No Status: Acute (9) Alcohol dependence with uncomplicated withdrawal Current Visit: No Status: Chronic (10) BPH (benign prostatic hyperplasia) Current Visit: Yes Status: Chronic Qualifiers: Lower urinary tract symptom presence: unspecified whether lower urinary tract symptoms present Qualified Code(s): N40.0 - Benign prostatic hyperplasia without lower urinary tract symptoms (11) Dehydration Current Visit: No Status: Chronic (12) Syncope Current Visit: No Status: Chronic Qualifiers: Syncope type: unspecified Qualified Code(s): R55 - Syncope and collapse (13) Drug-induced mood disorder Current Visit: No Status: Suspected - AMA Did Patient Leave Against Medical Advice: No (pt declined rehab; going home)
[2019-05-21] MEDS ORDERED: chlordiazePOXIDE HCL 10 MG CAPSULE PO SCH (05:00)
[2019-05-22] MEDS ORDERED: chlordiazePOXIDE HCL 10 MG CAPSULE PO ONE (05:00)
== END 2019-05-20 09:55 | disposition home or self-care (01) | DRG 897 ==
LOC: YASAS 08:59 → Y6N 11:17
PROVIDERS: ADMIT Surgery; ATTEND Surgery
PROC: HZ2ZZZZ Detoxification Services for Substance Abuse Treatment (ICD-10-PCS; principal; 2019-05-17)
DX: F10.230 Alcohol dependence with withdrawal, uncomplicated (principal); F12.10 Cannabis abuse, uncomplicated; F17.210 Nicotine dependence, cigarettes, uncomplicated; F19.24 Other psychoactive substance dependence with psychoactive substance-induced mood disorder; F41.9 Anxiety disorder, unspecified; F32.9 Major depressive disorder, single episode, unspecified; G47.00 Insomnia, unspecified; E78.00 Pure hypercholesterolemia, unspecified; N40.0 Benign prostatic hyperplasia without lower urinary tract symptoms; E86.0 Dehydration
CPT/HCPCS: 36415; 80053; 82962; 85027; 86593